=== PATIENT | female | born 1945 ===

== ENCOUNTER 2024-01-02 08:22 | Inpatient (IN) ==
[2024-01-02] MEDS ORDERED: Patient's ALLERGY Info needs ENTERED SCH (09:00)
[2024-01-02] MEDS: diphenhydrAMINE 50 MG/ML VIAL ONE (09:23)
[2024-01-02] MEDS: niCARdipine HCL INJ 2.5 MG/ML 10 ML AMP ONE (09:23)
[2024-01-02] MEDS: NITROGLYCERIN/D5W 100MCG/ML 20ML SYR ONE (09:23)
[2024-01-02] MEDS: MIDAZOLAM HCL 1 MG/ML 2ML VIAL ONE (09:24)
[2024-01-02] MEDS: HEPARIN (PORCINE) 1000 UNIT/ML 10 ML (CATH LAB USE ONLY) ONE (09:24)
[2024-01-02] MEDS: OPTIRAY 350 ONE (09:28)
[2024-01-02] MEDS: fentaNYL citrate PF 100 MCG/2 ML VIAL ONE (09:28)
--- NOTE | 2024-01-02 09:37 | Pre Anesthesia Assessment ---
Date of Service January 02, 2024 Pre Sedation Assessment Cardiovascular + regular rate Respiratory + respiratory effort normal Pre-Sedation Airway Assessment Smoking Status: Current every day smoker Hx Sleep Apnea: No Hx Difficult Intubation: No Short, Thick Neck: No Thyromental Distance: < 3.5 Finger Breadths Oral Cavity: + Dental Abnormalities Mallampati Class: III Procedure Planning Contraindications for Sedation: none Current Medications Reviewed: Yes Notes The planned sedation has been discussed with the patient. Informed Consent was obtained. I have identified the patient, determined the appropriateness of sedation and have assessed the patient immediately prior to the procedure. All medicine(s) and interventions are by my order.
--- NOTE | 2024-01-02 09:40 | Post Anesthesia Assessment ---
Date of Service January 02, 2024 Post Sedation Assessment Recovery Score Activity: Moves 4 extremities Respiration: Deep Breath/Cough Circulation: +/-20% PreAnes Value Consciousness: Fully Awake Oxygen Saturation: O2 needed for >90% Discharge Sedation Level of Care: Fast Track Phase II Post Sedation Plan On clinical assessment, the patient appears to have tolerated the sedation without complications. Patient is recovering as anticipated. Patient will continue to be monitored by nursing and may be discharged when sedation discharge criteria are met per below protocol. Upon Completions of procedure up to 15 minutes continue every 5 minute vital signs and the P.A.R. score; then discharge to a Phase I or Fast Track to Phase II per the following guidelines: * Discharge Patient to appropriate Phase II area if PAR is 8 or greater or return to pre- procedure baseline. The post - procedure orders will be as directed. * If PAR score is less than 8 or not return to pre-procedure baseline then patient will follow Phase I monitoring till PAR is reached for Phase II. The Phase I may be done in procedure room or may call to secure a Phase I area. * If naloxone or flumazenil are used for reversal, hold in Phase I for continued monitoring from when last reversal dose was given for a minimum of 60 minutes or longer pending the nurse and/or physician discretion of patient condition before discharge to Phase II. Please call the Sedation Physician to re-evaluate and complete post-note for discharge to Phase II area. Do NOT discharge from procedure sedation or Phase 1 until post- sedation evaluation note is complete by procedure /sedation MD Sedation Discharge Instructions to be given to the patient at discharge to home.
--- NOTE | 2024-01-02 10:14 | Cardiology Consultation ---
Date of Consultation January 02, 2024 Assessment & Plan (1) Acute ST elevation myocardial infarction (STEMI) of inferior wall: Patient here following thrombolysis for inferior STEMI 3 hours ago. She has had stuttering chest pain with transient hemodynamic instability suggestive of incomplete reperfusion post lytics. Recommend proceeding with coronary angiography for possible salvage PCI. Further recommendations pending findings of procedure. History of Present Illness Attending Physician: Sonu Thomas MD History of Present Illness 78-year-old woman here with inferior DE transferred here from [facility] post thrombolysis. No known prior cardiac history. Negative stress and normal LV function on echo in 2021. Has a history of vascular disease with occluded left ICA, 50% right ICA. Had ruptured AAA in 2021 treated with EVAR in [place]. She is an ongoing smoker. Patient unable to provide significant history. Per report from [facility] ED physician patient developed chest pain around midnight, 4 hours prior to arrival in ED. ECG personally reviewed showed sinus rhythm with inferior ST elevation and old right bundle branch block. Air and ground transport unavailable. After discussion decided on proceeding with thrombolysis with tenecteplase which received at approximately 5:30 AM. Was hypertensive to 200s and received IV labetalol. Per report had improvement in ST elevations post TNK but continued to have stuttering chest pain. Also became medically unstable with hypotension, junctional bradycardia to the 30s requiring initiation of dopamine, atropine. On arrival to [facility] patient denied ongoing chest. Reportedly had chest pain off and on and route per EMS. Repeat ECG showed minimal inferior ST elevation with inferior Q waves. Dopamine off with stable BP. Home Medications Medication Instructions Recorded Confirmed Type aspirin 81 mg capsule 81 mg PO DAILY 01/02/24 01/02/24 History donepezil 10 mg tablet 10 mg PO DAILY 01/02/24 01/02/24 History memantine 10 mg tablet 10 mg PO DAILY 01/02/24 01/02/24 History metoprolol succinate 100 mg 100 mg PO DAILY 01/02/24 01/02/24 History tablet,extended release 24 hr pantoprazole 40 mg tablet,delayed 40 mg PO DAILY 01/02/24 01/02/24 History release (Protonix) trospium 60 mg capsule,extended 60 mg PO DAILY 01/02/24 01/02/24 History release 24 hr Patient History Medical History Chronic pain of both feet Osteoarthritis Rheumatoid arthritis AAA (abdominal aortic aneurysm, ruptured) History of mumps History of measles GERD (gastroesophageal reflux disease) Fibromyalgia Urinary incontinence Coronary artery disease History of transient ischemic attack Dementia Hyperlipidemia Surgical History History of AAA (abdominal aortic aneurysm) repair Endovascular repair of ruptured AAA on 04/16/2022 @ [facility]. Social History Smoking Status: Current every day smoker Tobacco Type: Cigarettes Second Hand Exposure: No; Do You Dip or Chew Tobacco: No; Tobacco Cessation Education Requested by Patient: No Hx Alcohol Use: Yes Alcohol type: wine Hx Substance Use: No Preferred Language: Kyrgyz Communication Ability: Effective Fund Manager Required: No Beliefs That Will Affect Care: None Current Living Situation: Spouse Other Information That Helps Us Care for You: No Feels Safe at Home: Yes Safety Concerns: Feels Safe At This Time Review of Systems Review of Systems: All systems reviewed & are unremarkable except as noted in HPI & below Physical Exam Physical Exam: General: Uncomfortable HEENT: Sclerae anicteric Lungs: Clear anteriorly Cardiac: Regular rate and rhythm, no murmurs. Vascular: 2+ radial Abdomen: Soft, nontender Extremities: Well perfused, no peripheral edema Neuro: Nonfocal Psych: Alert orient x3, normal affect and mood PG Care Time/CCT Total # of Minutes Spent Total Time Spent with Patient: Total time spent is greater than 50% in coordination of care (as documented) at patient's floor/unit and/or counseling patient: Coding Level of Care Code 31051 INT INP/OBS CARE 3/75MIN Diagnoses Acute ST elevation myocardial infarction (STEMI) of inferior wall I21.19
--- NOTE | 2024-01-02 10:15 | Cardiac Catheterization ---
[facility] Data: Bar Host/Hostess Cardiac Status Clinical evaluation leading to the procedure CAD Presenation: STEMI Anginal Classification: CCS IV Diagnostic Physicians Name: Sonu Thomas MD Closure Device Recommendations: PCI without planned CABG Cardiac Cath Procedure Full Procedure Date January 02, 2024 Pre-Procedure Diagnosis Pre-Procedure Diagnosis: STEMI AUC Score AUC Score: 9 Post-Procedure Diagnosis Post-Procedure Diagnosis: Severe CAD, Successful PCI and Normal Intracardiac Pressures Procedure(s) Performed Procedure(s) Performed: Coronary Angiography, Left Heart Cath, Drug Eluting Stent and Ultrasound Guided Vascular Access Developer Programmer Sonu Thomas MD Home Health Care Case Manager(s) Marissa Estimated Blood Loss Estimated Blood Loss: 20 Medication(s) Medication(s): Fentanyl, Heparin, Lidocaine 1%, Nicardipine, Nitroglycerin and Versed Medication(s): Previously received ticagrelor, TNK Summary of Findings Indication: STEMI/Heart Alert Inferior STEMI with presentation to outside non- PCI capable hospital. Delayed transport options and received TNK 3 hours prior to arrival. Ongoing stuttering chest pain and transient hemodynamic instability requiring pressors. Access: 6 Fr right radial artery under ultrasound guidance Catheters: [place], JR4 guide Findings: LM -normal caliber, calcified, 30-40% distal stenosis LAD -medium caliber, calcified, 60-70% earlymid stenosis involving takeoff of m edium D2. Remainder of mid/distal vessel without significant disease and wraps around apex. Medium D2 without significant disease. Circumflex -medium caliber, angulated takeoff, 40% ostial stenosis, 80-90% mid segment stenosis prior to takeoff of large OM 3. OM 3 with 40% proximal disease. RCA -dominant, medium caliber, 95+% mid RCA stenosis with OLIMPIA-3 distal flow. PDA, RPL without significant disease. LVEDP -11 -- PCI -- Antithrombotic therapy: Heparin, OSH ticagrelor Procedure: RCA cannulated with JR4 guide [place] blue wire passed across lesion into distal vessel With the aid of telescope support catheter mid lesion predilated with 2.5 compliant balloon Dilated lesion stented with 3.0 x 22 mm [place] drug-eluting stent Stent post-dilated with 3.5 noncompliant balloon IC vasodilators administered for spasm Post procedure OLIMPIA 3 flow, stent well expanded with minimal residual stenosis and no apparent cardiac complications. Arterial Closure: TR band Summary: 1. Acute 95% mid RCA stenosis post thrombolytics 2. Severe non-culprit coronary artery disease -80-90% mid circumflex 60-70% mid LAD at bifurcation with D2 30-40% distal left main 3. Normal intracardiac filling pressure 4. Successful PCI of mid RCA with single drug-eluting stent (3.0 x 22 mm [place]; postdilated with 3.5 NC) Recommendations: Admit to ICU for continued monitoring Loaded with ticagrelor 180 mg Continue dual-antiplatelet therapy for at least 1 year. Trend troponins until peak, Check Echo Uptitrate beta-kimberly/ANNE MARIE as BP allows High-dose statin Consult cardiac Rehab Likely staged PCI of circumflex at some point, potentially as an outpatient. Hemodynamics Rest Ao:: 148/68/102 Final Ao: 164/84/112 LV: 154/11 Recommendations Recommendations: PCI without planned CABG Specimens Specimens: None Radiation Exposure (mGy) 679 Contrast (mls) 90 Anesthesia Moderate 7170-1376 Procedural Complication(s) None Disposition ICU I attest to the content of the Intraoperative Record and any orders documented therein. Any exceptions are noted below. [facility] Card Cath Procedure Codes Cardiac Catheterization Procedure 1: Cardiovascular Cath Procedures: 27543 Coronaries and LHC (+/-LV) Therapeutic Services & Ancillary Procedure 1: Cardiovascular Tx and Anc Procedures: 82042 Ultrasonic Guidance Vascular Access Moderate Sedation Procedure 1: Sedation/Anesthesia: 20015 Mod Sedation by the same physician;Init15 Min Child Age 5 & Up Procedure 2: Sedation/Anesthesia: 60048 Mod Sedation by the same physician; Ea [id number] Minutes Stenting Procedure 1: Cardiovascular Stent Procedures: 92621 Perc transluminal revascularization of acute sub/total occl, aMI PG Care Time/CCT Total # of Minutes Spent Total Time Spent with Patient: Total time spent is greater than 50% in coordination of care (as documented) at patient's floor/unit and/or counseling patient:
--- NOTE | 2024-01-02 10:37 | History & Physical Report ---
Date of Service January 02, 2024 Assessment & Plan (1) Acute ST elevation myocardial infarction (STEMI) of inferior wall: (2) S/P cardiac catheterization: (3) Coronary artery disease: Plan: Danita Bull is a 78y/o F with PMHx of CAD, urinary incontinence, TIA [2019], dementia, hyperlipidemia, b/l carotid artery stenosis, GERD, ruptured AAA s/p endovascular repair [04/16/2022], osteoarthritis/RA and fibromyalgia who presented to [facility] following transfer from [facility] to undergo cardiac catheterization for tx of an acute inferior STEMI. According to documentation from [facility], patient presented to their ED via EMS with c/c of chest pain starting sometime in the speech therapist early intervention hours today. EKG performed by EMS revealed an inferior STEMI, and aspiring was provided en route to the hospital. She was reported to be at baseline yesterday. The chest pain has lingered since it began in the speech therapist early intervention hours, and her pain level was recorded being ~8/10 upon arrival to the [facility] ED. Initial trop in [facility] ED was 47 @ 04:25, repeat trop @ 05:38 increased to 50. TNK and Brilinta initiated in [facility] ED. Labetalol also given in [facility] ED, as her SBP was in the 200s. SBP improved to the 150s following administration. Low-dose fentanyl was also given for pain. Patient did become bradycardic in the 30s, was ultimately given 1mg of atropine and started on a dopamine infusion. Patient ultimately transferred here to [facility] via [facility] ambulance. Patient underwent successful cardiac catheterization of mid RCA w/ single drug- eluding stent placement, performed by Dr. Thomas. He mentioned further evaluation/management of the mid circumflex artery, as 80% occlusion was noted during the cardiac catheterization procedure. Continue to f/u on Dr. Thomas' recommendation/plan for addressing the mid circumflex artery occlusion. Of note, 30-40% distal left main artery and 60% mid LAD artery occlusions noted during procedure as well. She is now off the dopamine drip s/p cardiac catheterization. HR currently holding steady in the 80s. -Start high-dose statin therapy -Continuous cardiac monitoring -Repeat troponin, trend results -Admitted to ICU for further monitoring -Dr. Thomas for further cardiac management (4) Hyperlipidemia: Plan: -Patient was not taking any cholesterol medications at home. -Will be started on high-dose statin therapy per cardiac protocol. (5) History of dementia: Plan: -Unknown severity of dementia status, pt is actively disoriented to location. -Monitor for any signs of delirium during admission (6) GERD (gastroesophageal reflux disease): Plan: -Continue pantoprazole Spoke with her , Jeremy, over the phone. He would like to be updated daily via mobile cellphone communication on her progress. He cannot drive currently d/t low BP. Jeremy's Cell Code Status: Full Code PCP: Sreedhar Jackson MD Dispo: Admitted in the ICU Patient seen in collaboration with Dr. Ortiz. Please see addendum. I spent a total of 75 minutes coordinating, documenting, and providing care for this patient excluding time spent in the performance of separately billed services. This included personally reviewing all current laboratories and imaging studies, medical reconciliation, outpatient chart review and discussion with specialists. History of Present Illness Chief Complaint: Acute Inferior STEMI Primary Care Provider: Sreedhar Jackson MD Danita Bull is a 78y/o F with PMHx of CAD, urinary incontinence, TIA [2019], dementia, hyperlipidemia, b/l carotid artery stenosis, GERD, ruptured AAA s/p endovascular repair [04/16/2022], osteoarthritis/RA and fibromyalgia who presented to [facility] following transfer from [facility] to undergo cardiac catheterization for tx of an acute inferior STEMI. History mainly obtained from associated ED/PCP/specialist records. Patient unable to provide significant history. According to documentation from [facility], patient presented to their ED via EMS with c/c of chest pain starting sometime in the speech therapist early intervention hours today. EKG performed by EMS revealed an inferior STEMI, and aspiring was provided en route to the hospital. She was reported to be at baseline yesterday. The chest pain has lingered since it began in the speech therapist early intervention hours, and her pain level was recorded being ~8/10 upon arrival to the [facility] ED. Initial trop in [facility] ED was 47 @ 04:25, repeat trop @ 05:38 increased to 50. TNK and Brilinta initiated in [facility] ED. Labetalol also given in [facility] ED, as her SBP was in the 200s. SBP improved to the 150s following administration. Low-dose fentanyl was also given for pain. Patient did become bradycardic in the 30s, was ultimately given 1mg of atropine and started on a dopamine infusion. Patient seen at bedside in ICU s/p cardiac catheterization performed by Dr. Thomas. Patient states she is "exhausted." Experiencing no chest pain or SOB at this time. Not really oriented to her surroundings, did not correctly identify where she currently is. Patient states she is in "an outpatient surgery center somewhere in [place]." Patient was discussed with bedside nurse, Jethro, who was going to contact her to clarify her home medications and baseline mental status. Allergies Allergy/AdvReac Type Severity Reaction Status Date / Time acetaminophen Allergy Unknown Unverified 01/02/24 13:09 adhesive tape Allergy Unknown Unverified 01/02/24 13:09 codeine Allergy Unknown Unverified 01/02/24 13:14 Penicillins Allergy Unknown Unverified 01/02/24 13:14 Sulfa (Sulfonamide Allergy Unknown Unverified 01/02/24 13:14 Antibiotics) Sulfonylureas Allergy Unknown Unverified 01/02/24 13:14 Antihistamines - Alkylamine AdvReac Vomiting Unverified 01/02/24 13:15 Antihistamines - Ethanolamine AdvReac Vomiting Unverified 01/02/24 13:17 Home Medications Medication Instructions Recorded Confirmed Type aspirin 81 mg capsule 81 mg PO DAILY 01/02/24 01/02/24 History donepezil 10 mg tablet 10 mg PO DAILY 01/02/24 01/02/24 History memantine 10 mg tablet 10 mg PO DAILY 01/02/24 01/02/24 History metoprolol succinate 100 mg 100 mg PO DAILY 01/02/24 01/02/24 History tablet,extended release 24 hr pantoprazole 40 mg tablet,delayed 40 mg PO DAILY 01/02/24 01/02/24 History release (Protonix) trospium 60 mg capsule,extended 60 mg PO QPM 01/02/24 01/02/24 History release 24 hr Past Med/Surg History Medical History Chronic pain of both feet Osteoarthritis Rheumatoid arthritis AAA (abdominal aortic aneurysm, ruptured) History of mumps History of measles GERD (gastroesophageal reflux disease) Fibromyalgia Urinary incontinence Coronary artery disease History of transient ischemic attack Dementia Hyperlipidemia Surgical History History of AAA (abdominal aortic aneurysm) repair Endovascular repair of ruptured AAA on 04/16/2022 @ [facility]. Social History (Updated 01/02/24 @ 13:46 by Rebekah Calero PA-C) Smoking Status: Current every day smoker Tobacco Type: Cigarettes Second Hand Exposure: No; Do You Dip or Chew Tobacco: No; Hx Alcohol Use: Yes Alcohol type: wine Alcohol Intake Frequency Comment: 1-2 glasses of wine/day Hx Substance Use: No Preferred Language: Botswanan Communication Ability: Effective Air Sampler Required: No Beliefs That Will Affect Care: None Current Living Situation: Spouse Feels Safe at Home: Yes Review of Systems Review of Systems: At least ten systems reviewed and negative, except as noted in the HPI. Physical Exam Physical Exam: General Appearance: Appears very tired, but comfortable. Had to wake her up multiple times during our conversation, as she kept falling asleep. Head: Normocephalic, atraumatic. Eyes: Normal inspection, PERRL, conjunctivae normal, anicteric sclerae. ENT: External ear and nose normal, oropharynx normal. Neck: Normal visual inspection, trachea midline, no thyromegaly. Respiratory: Normal respiratory effort, lungs clear to auscultation on the anterior aspect, no wheeze, rales, rhonchi. No accessory muscle use. Cardiovascular: Regular rate, rhythm, no murmur, normal peripheral pulses, no peripheral edema. Vessels: No JVD. Chest: Normal inspection of chest. Abdomen/GI: Normal bowel sounds, soft, nontender, no hepatosplenomegaly Extremities/Musculoskeletal: No cyanosis or clubbing. Neurologic: PERRL, EOMI, accommodation nl, no face palsy, no dysarthria. Psychiatric: Not oriented to location. Was able to make eye contact on/off. Flatter affect, however notably sleepy. Skin: [address] s/p cardiac catheterization. No evidence of bleeding at either site. Results & Data Results & Data Vital Signs (Past 12 Hours) Vital Signs Temp Pulse Resp BP Pulse Ox O2 Del Method O2 Flow Rate 01/02/24 09:50 80 16 154/80 H 92 Room Air 05/10/24 09:45 36.7 C 72 18 166/97 H 96 Nasal Cannula 2 Intake and Output 01/01/24 01/02/24 01/02/24 22:59 06:59 14:59 Other: Weight 55 kg Weight Measurement Method Built in [facility] Patient Weight 01/03/24 06:59 Weight 55 kg Medications Administered Discontinued Medications Diphenhydramine HCl (Diphenhydramine 50 Mg/Ml Vial) Confirm Administered Dose 50 mg .ROUTE .STK-MED ONE Stop: 01/02/24 09:05 Last Admin: 01/02/24 09:23 Dose: 25 mg Documented By: CRUSHER AND BLENDER OPERATOR Fentanyl Citrate (Fentanyl Citrate Pf 100 Mcg/2 Ml Vial) Confirm Administered Dose 100 mcg .ROUTE .STK-MED ONE Stop: 01/02/24 06:58 Last Increment: 01/02/24 09:28 Dose: 50 mcg Documented By: CRUSHER AND BLENDER OPERATOR Heparin Sodium (Porcine) (Heparin (Porcine) 1000 Unit/Ml 10 Ml (Exhibits Coordinator Use Only)) Confirm Administered Dose 10,000 units .ROUTE .STK-MED ONE Stop: 01/02/24 06:58 Last Admin: 01/02/24 09:24 Dose: 6,000 units Documented By: CRUSHER AND BLENDER OPERATOR Heparin Sodium/Sodium Chloride (Heparin In Nss Infusion 1000 Unit/500 Ml (2 U/Ml) Bag) Confirm Administered Dose 3,000 units IV .STK-MED ONE Stop: 01/02/24 06:59 Last Admin: 01/02/24 09:23 Dose: 3,000 units Documented By: CRUSHER AND BLENDER OPERATOR Ioversol (Optiray 350) Confirm Administered Dose 1 ml .ROUTE .STK-MED ONE Stop: 01/02/24 06:59 Last Admin: 01/02/24 09:28 Dose: 90 ml Documented By: CRUSHER AND BLENDER OPERATOR Midazolam HCl (Midazolam Hcl 1 Mg/Ml 2ml Vial) Confirm Administered Dose 2 mg .ROUTE .STK-MED ONE Stop: 01/02/24 06:58 Last Admin: 01/02/24 09:24 Dose: 2 mg Documented By: CRUSHER AND BLENDER OPERATOR Nicardipine HCl (Nicardipine Hcl Inj 2.5 Mg/Ml 10 Ml Amp) Confirm Administered Dose 25 mg .ROUTE .STK-MED ONE Stop: 01/02/24 06:58 Last Admin: 01/02/24 09:23 Dose: 25 mg Documented By: CRUSHER AND BLENDER OPERATOR Nitroglycerin/Dextrose (Nitroglycerin/D5w 100mcg/Ml 20ml Syr) Confirm Ad ministered Dose 2,000 mcg .ROUTE .STK-MED ONE Stop: 01/02/24 06:59 Last Admin: 01/02/24 09:23 Dose: 2,000 mcg Documented By: CRUSHER AND BLENDER OPERATOR Code Status & VTE Plan Code Status FULL CODE VTE Prophylaxis Plan VTE Prophylaxis will be ordered: Yes Supervising Physician Co-Signing Physician Notes I have seen and discussed the case with the collaborating advanced practitioner. I agree with the above H&P. I have reviewed and confirmed the patients medical history, the findings on physical examination, and the patients diagnosis and treatment plan with Galilea NOBLE and agree with the information documented. In short, Ms. Bull is a 78 year old woman with PMHx of CAD, urinary incontinence, TIA [2019], dementia, hyperlipidemia, b/l carotid artery stenosis, GERD, ruptured AAA s/p endovascular repair [04/16/2022], osteoarthritis/RA and fibromyalgia who presented to [facility] following transfer from [facility] to undergo cardiac catheterization for tx of an acute inferior STEMI. Patient is now s/p 1 BAILEY mRCA. Patient evaluated after procedure, she is alter and oriented to self, still seemingly sedated. Denies active pain. Unable to describe circumstances of admission at this time. Patient without any acute concerns, denying chest pain, SOB or other issues. LHC revealed: 99% mid RCA 30 to 40% distal left main 80% mid circumflex 60% mid LAD GENERAL APPEARANCE: AxOx1, tired appearing frial woman, HEENT: NC, AT. MMM. EOMI, clear conjunctiva, oropharynx clear. NECK: Supple without lymphadenopathy. No stiffness or restricted ROM. HEART: Normal rate and regular rhythm, normal S1/S1, no m/r/g LUNGS: CTAB, moving air well. No crackles or wheezes are heard. ABDOMEN: Soft, nontender, nondistended with good bowel sounds heard. EXTREMITIES: Without cyanosis, clubbing or edema. NEUROLOGICAL: Grossly nonfocal. Alert and oriented, moving all 4 extremities. CN not formally tested but appear grossly intact. Observed to ambulate with normal gait. Skin: right access site with [address], some ecchymosis from access, scattered purpuric lesions on right chest, no obvious wounds or skin tears #Acute STEMI s/p BAILEY mRCA #Obstructive CAD -following thrombolysis for inferior STEMI 3 hours ago at [facility] -Admit to ICU for continued monitoring Loaded with ticagrelor 180 mg Continue ticagrelor and asa Trend troponins until peak Check Echo Started on lisinopril 5mg Metoprolol q8h Atorvastatin 40g daily #Dementia -Delirium precautions -Continue memantine and donpezil #urge incontinence Continue home medications #Ruptured AAA s/p EVAR 2021 -[facility] Dr Steven Rest of plan as above I spent a total of 35 minutes coordinating, documenting, and providing care for this patient excluding time spent in the performance of separately billed services. All of the aforementioned completed outside of collaborating with the assigned advanced practitioner for a full treatment plan. I have reviewed the advanced practitioner's documentation, and I agree with, and take responsibility for the plan of care (3) Coronary artery disease Associated angina: unspecified whether angina present Coronary Disease- Associated Artery/Lesion type: unspecified vessel or lesion type [place] vs. transplanted heart: tribe heart Qualified Code(s): I25.10 - Atherosclerotic heart disease of tribe coronary artery without angina pectoris (4) Hyperlipidemia Hyperlipidemia type: unspecified Qualified Code(s): E78.5 - Hyperlipidemia, unspecified (6) GERD (gastroesophageal reflux disease) Esophagitis presence: without esophagitis Qualified Code(s): K21.9 - Gastro- esophageal reflux disease without esophagitis
--- NOTE | 2024-01-02 13:01 | Critical Care Consultation ---
Date of Consultation January 02, 2024 Assessment & Plan (1) Acute ST elevation myocardial infarction (STEMI) of inferior wall: (2) Bradycardia: (3) History of dementia: Plan Impression: 78-year-old female with multifocal coronary disease presenting with acute ST elevation inferior myocardial infarction status post outside hospital TNK administration as well as salvage cardiac catheterization with stent placement to the right coronary artery. She has multifocal disease and may require additional procedures in the future. Recommendations: 1. Acute coronary syndrome: Per cardiology. Will judiciously titrate beta- kimberly, ANNE MARIE inhibitor, and statin. Will need to get outside labs performed at [facility] scanned into our system as I would not recommend additional venipuncture for 24 hours post TNK administration as the patient is already having bleeding issues 2. Bradycardia: Likely secondary to labetalol as well as the inferior SD. Resolved currently. Follow clinically. 3. Hypotension: Resolved. She is now actually hypertensive. She has been started on metoprolol and lisinopril and these can be uptitrated as tolerated. 4. Will await repeat laboratory studies which can be performed tomorrow. 5. Dementia: Continue Aricept. Will continue to observe in the ICU overnight tonight. If she is hemodynamically stable, she can likely be downgraded out of the ICU tomorrow. Thanks for the opportunity participating the care of this patient. Feel free to contact us with questions or concerns History of Present Illness Attending Physician: Arlet Soto MD History of Present Illness Patient is a 78-year-old female with a history of dementia who presented to [facility] early this morning with an acute coronary syndrome. The patient has underlying dementia and is not a reliable historian so history is obtained from review of the electronic medical record as well as discussion with cardiology. Reportedly the patient developed chest pain around midnight. She was seen in [place] emergency room. This revealed ST elevation in inferior leads with a prior right bundle branch. Due to weather, transport including air and ground transport were unobtainable therefore the patient received systemic thrombolytics. She was then hypertensive requiring IV labetalol but then developed hypotension and a junctional bradycardia with stuttering chest pain. She was initiated on dopamine and therefore was arranged for urgent transfer to [facility]. On arrival here she was chest pain-free. Dopamine has been weaned off. She was taken to the [facility] where she was found to have multifocal disease with a culprit lesion in the right coronary artery showing about a 95% stenosis with OLIMPIA-3 distal flow. There is also an 80 to 90% segmental stenosis in the circumflex as well as a 30 to 40% distal stenosis in the left main and a 60 to 70% stenosis in the LAD. LVEDP was normal. She underwent drug-eluting stent to the right coronary lesion and was brought to the ICU. She is hemodynamically stable. Patient did undergo vena puncture to the right AC on arrival and now has a significant hematoma as this was performed after she had received TNK. She also has a small hematoma at the site of her radial artery catheterization which has resulted in application of the second TR band. Allergies Allergy/AdvReac Type Severity Reaction Status Date / Time Acetaminophen Allergy Unknown Unknown Uncoded 01/02/24 13:05 Adhesive Tape Allergy Unknown Unknown Uncoded 01/02/24 13:05 Antihistamines, Allergy Unknown Nausea/Vomi Uncoded 01/02/24 13:05 Chlorpheniramine-type ting Antihistamines, Allergy Unknown Nausea/Vomi Uncoded 01/02/24 13:05 diphenhydramine-type ting Codeine Allergy Unknown Unknown Uncoded 01/02/24 13:05 Penicillins Allergy Unknown Unknown Uncoded 01/02/24 13:05 Sulfa Antibiotics Allergy Unknown Unknown Uncoded 01/02/24 13:05 Sulfonylureas Allergy Unknown Unknown Uncoded 01/02/24 13:05 Home Medications Medication Instructions Recorded Confirmed Type aspirin 81 mg capsule 81 mg PO DAILY 01/02/24 01/02/24 History donepezil 10 mg tablet 10 mg PO DAILY 01/02/24 01/02/24 History memantine 10 mg tablet 10 mg PO DAILY 01/02/24 01/02/24 History metoprolol succinate 100 mg 100 mg PO DAILY 01/02/24 01/02/24 History tablet,extended release 24 hr pantoprazole 40 mg tablet,delayed 40 mg PO DAILY 01/02/24 01/02/24 History release (Protonix) trospium 60 mg capsule,extended 60 mg PO QPM 01/02/24 01/02/24 History release 24 hr Patient History Medical History Chronic pain of both feet Osteoarthritis Rheumatoid arthritis AAA (abdominal aortic aneurysm, ruptured) History of mumps History of measles GERD (gastroesophageal reflux disease) Fibromyalgia Urinary incontinence Coronary artery disease History of transient ischemic attack Dementia Hyperlipidemia Surgical History History of AAA (abdominal aortic aneurysm) repair Endovascular repair of ruptured AAA on 04/16/2022 @ [facility]. Social History Smoking Status: Current every day smoker Tobacco Type: Cigarettes Second Hand Exposure: No; Do You Dip or Chew Tobacco: No; Tobacco Cessation Education Requested by Patient: No Hx Alcohol Use: Yes Alcohol type: wine Hx Substance Use: No Preferred Language: Jamaican Communication Ability: Effective Customer Service Technician Required: No Beliefs That Will Affect Care: None Current Living Situation: Spouse Other Information That Helps Us Care for You: No Feels Safe at Home: Yes Safety Concerns: Feels Safe At This Time Review of Systems Review of Systems: Please refer to admission H&P. No additions or deletions Physical Exam Physical Exam: General: Uncomfortable HEENT: Sclerae anicteric Lungs: Clear anteriorly Cardiac: Regular rate and rhythm, no murmurs. Vascular: 2+ radial Abdomen: Soft, nontender Extremities: Well perfused, no peripheral edema Neuro: Nonfocal Psych: Alert orient x3, normal affect and mood Results & Data Results & Data Vital Signs (Past 12 Hours) Vital Signs Temp Pulse Pulse Resp BP BP Pulse Ox 01/02/24 12:00 163/95 H 01/02/24 12:00 70 26 H 95 01/02/24 11:45 162/93 H 01/02/24 11:45 73 19 96 01/02/24 11:30 74 15 93 01/02/24 11:15 72 16 95 01/02/24 11:00 166/88 H 01/02/24 11:00 74 21 99 01/02/24 10:45 72 17 96 01/02/24 10:34 73 16 91 01/02/24 10:34 166/97 H 01/02/24 10:30 72 22 91 01/02/24 10:29 76 20 89 L 01/02/24 09:50 80 16 154/80 H 92 05/10/24 09:45 36.7 C 72 18 166/97 H 96 O2 Del Method O2 Flow Rate 01/02/24 12:00 01/02/24 12:00 01/02/24 11:45 01/02/24 11:45 01/02/24 11:30 01/02/24 11:15 01/02/24 11:00 01/02/24 11:00 01/02/24 10:45 01/02/24 10:34 01/02/24 10:34 01/02/24 10:30 01/02/24 10:29 01/02/24 09:50 Room Air 01/02/24 09:45 Nasal Cannula 2 Critical Care Results & Data Vital Signs (Past 12 Hours) Vital Signs Temp Pulse Pulse Resp BP BP Pulse Ox 01/02/24 12:00 163/95 H 01/02/24 12:00 70 26 H 95 01/02/24 11:45 162/93 H 01/02/24 11:45 73 19 96 01/02/24 11:30 74 15 93 01/02/24 11:15 72 16 95 01/02/24 11:00 166/88 H 01/02/24 11:00 74 21 99 01/02/24 10:45 72 17 96 01/02/24 10:34 73 16 91 01/02/24 10:34 166/97 H 01/02/24 10:30 72 22 91 01/02/24 10:29 76 20 89 L 01/02/24 09:50 80 16 154/80 H 92 01/02/24 09:45 36.7 C 72 18 166/97 H 96 O2 Del Method O2 Flow Rate 01/02/24 12:00 01/02/24 12:00 01/02/24 11:45 01/02/24 11:45 01/02/24 11:30 01/02/24 11:15 01/02/24 11:00 01/02/24 11:00 01/02/24 10:45 01/02/24 10:34 01/02/24 10:34 01/02/24 10:30 01/02/24 10:29 01/02/24 09:50 Room Air 01/02/24 09:45 Nasal Cannula 2 Lab & Micro Results (Past 24 Hours) No Data to Display No Data to Display No Data to Display I & O Totals 24 Hours 01/01/24 01/02/24 01/03/24 06:59 06:59 06:59 Intake Total 150 / 150 Output Total 0 / 0 Balance 150 / 150 Cumulative 01/02/24 thru 01/02/24 09:52 Intake Total 150 Output Total 0 Balance 150 RT Ventilator Mngmt (Last Documented) Ventilator Ordered Settings Respiratory Rate 26 01/02/24 12:00 Ventilator - PT Measurements Respiratory Rate 26 Coding Level of Care Code 46646 IN/OBS CONSULT LVL 4,60M Diagnoses Acute ST elevation myocardial infarction (STEMI) of inferior wall I21.19 Bradycardia R00.1 History of dementia Z86.59
[2024-01-02] MEDS: ICU Protocol for HYPERglycemia SCH (14:36)
--- OUTSIDE RECORDS SUMMARY | 2024-01-02 14:37 | External Medical Summary ---
Author Name Unknown Address Unknown Organization K1F:[facility] - [address] [address] Laboratory Report Ordering Provider Test Date Status MARLEN COATS 01/02/2024 04:25:21 Final Anticoagulation may affect t esting. Refer to [facility] Test Catalog for a list of effects. Observation Date Value Abnormality Reference (Units ) Status aPTT panel - Platelet poor plasma 01/02/2024 04:25:21 32 21-38 (seconds) Final Performing Location [facility] - [address] [id number]
--- OUTSIDE RECORDS SUMMARY | 2024-01-02 14:37 | External Medical Summary ---
Author Name Unknown Address Unknown Organization K1F:[facility] - [address] [id number] Laboratory Report Ordering Provider Test Date Status MARLEN COATS 01/02/2024 04:25:21 Final Observation Date Value Abnormality Reference (Units ) Status Troponin T 01/02/2024 04:25:21 47 Above high normal < =14 (ng/L) Final Performing Location [facility] - [address] [id number]
--- OUTSIDE RECORDS SUMMARY | 2024-01-02 14:37 | External Medical Summary ---
Author Name Unknown Address Unknown Organization K1F:[facility] - [address] [place] [address] Laboratory Report Ordering Provider Test Date Status MARLEN COATS 01/02/2024 04:25:21 Final Observation Date Value Abnormality Reference (Units ) Status BUN 01/02/2024 04:25:21 13 6-20 (mg/dL) Final Creatinine 01/02/2024 04:25:21 1.0 0.5-1.0 (mg/dL) Final Glomerular filtration rate/1.73 sq M.predicted [Volume Rate/Area] in Serum, Plasma or Blood by Creatinine-based formula (CKD-EPI) 01/02/2024 04:25:21 61 >=60 (mL/min) Final eGFR is calculated based on the CKD-EPI 2020 equation Sodium 01/02/2024 04:25:21 140 135-146 (m mol/L) Final Potassium 01/02/2024 04:25:21 3.4 Below low normal 3.5 -5.1 (mmol/L) Final Cl 01/02/2024 04:25:21 102 98-107 (mm ol/L) Final CO2 01/02/2024 04:25:21 24 22-32 (mmo l/L) Final Anion gap 01/02/2024 04:25:21 14 7-15 (mmol /L) Final Glucose 01/02/2024 04:25:21 161 Above high normal 70 -120 (mg/dL) Final Albumin 01/02/2024 04:25:21 4.6 3.8-5.0 (g /dL) Final AST (Aspartate aminotransferase) 01/02/2024 04:25:21 20 10-35 (U/L) Fin al Alk Phos 01/02/2024 04:25:21 109 35-130 (U/ L) Final Bilirubin, Total 01/02/2024 04:25:21 0.2 <=1 .2 (mg/dL) Final Calcium 01/02/2024 04:25:21 9.9 8.4-10.2 ( mg/dL) Final Protein 01/02/2024 04:25:21 7.7 6.0-8.3 (g /dL) Final ALT (Alanine aminotransferase) 01/02/2024 04:25:21 14 10-35 (U/L) Surendra mendoza Performing Location LABORATORY [facility] - [address] [place], [place] [address] [address]
--- OUTSIDE RECORDS SUMMARY | 2024-01-02 14:37 | External Medical Summary ---
Author Name Unknown Address Unknown Organization K1F:LABORATORY [facility] - [address] [place] [address] Laboratory Report Ordering Provider Test Date Status MARLEN COATS 01/02/2024 04:26:11 Final SCREENING Observation Date Value Abnormality Reference (Units ) Status SARS Coronavirus 2 01/02/2024 04:26:11 Negative N egative Final 2019 Novel Coronavirus not d etected.

This express test was developed and its performance characteristics determined by [facility]. It has not been cleared or approved by the U.S. Food and Drug Administration (FDA). FDA does not require this test to go thru premarket FDA review. This test is used for clinical purposes. It should not be regarded as investigational or for research. This laboratory is certified under the Clinical Laboratory Improvement Amendments (CLIA) as qualified to perform high complexity clinical laboratory testing.

This test is a nucleic acid amplification test (NAAT), a reverse transcriptase polymerase chain reaction (RT-PCR) test, or a Centers for Disease Control-acceptable equivalent. The test is performed in a high complexity Clinical Laboratory Improvement Amendments-(CLIA) certified laboratory. The test is acceptable for SARS-CoV-2 diagnosis, surveillance, and travel within the [place] and to most countries. Please check with local testing authorities about requirements before travel.

The validation of bronchial specimens, tracheal aspirates, and sputum for this assay was developed and performance characteristics determined by [facility]. The validation of alternate specimen types has not been cleared or approved by the U.S. Food and Drug Administration (FDA). It has been determined that such clearance is not necessary. Performing Location LABORATORY [facility] - [address] [place] [address]
--- OUTSIDE RECORDS SUMMARY | 2024-01-02 14:37 | External Medical Summary ---
Author Name Unknown Address Unknown Organization K1F:LABORATORY [facility] - [address] [place] [address] Ave. [place] [address] Laboratory Report Ordering Provider Test Date Status JORGE LMARLEN 01/02/2024 04:25:21 Final Observation Date Value Abnormality Reference (Units ) Status WBC, Total 01/02/2024 04:25:21 9.87 4.00-10.80 (K/uL) Final RBC 01/02/2024 04:25:21 4.61 3.85-5.15 (M/uL) Final Hemoglobin 01/02/2024 04:25:21 15.2 12.0-15.3 (g/dL) Final HCT 01/02/2024 04:25:21 44.7 36.0-45.2 (%) Final MCV 01/02/2024 04:25:21 97.0 81.5-97.5 (fL) Final MCH 01/02/2024 04:25:21 33.0 27.0-34.0 (pg) Final MCHC 01/02/2024 04:25:21 34.0 32.0-36.0 (g/dL) Final RDW 01/02/2024 04:25:21 13.3 11.5-15.5 (%) Final Platelets 01/02/2024 04:25:21 161 140-400 (K/uL) Final MPV 01/02/2024 04:25:21 11.0 6.6-11.1 (fL) Final Nucleated erythrocytes/100 leukocytes [Ratio] in Blood by Automated count 01/02/2024 04:25:21 0 <=0 (/100 WBCs) Final Performing Location LABORATORY [facility] - [address] [place] [address]
--- OUTSIDE RECORDS SUMMARY | 2024-01-02 14:37 | External Medical Summary ---
Author Name Unknown Address Unknown Organization K1F:LABORATORY [facility] - [address] [place] [address] Laboratory Report Ordering Provider Test Date Status MARLEN COATS 01/02/2024 04:55:26 Final Observation Date Value Abnormality Reference (Units ) Status ABO 01/02/2024 04:55:26 A Final RH 01/02/2024 04:55:26 Positive Final Performing Location LABORATORY [facility] - [address] [place] [address]
--- OUTSIDE RECORDS SUMMARY | 2024-01-02 14:37 | External Medical Summary ---
Author Name Unknown Address Unknown Organization K1F:LABORATORY [facility] - [address] [facility] [place] [address] Laboratory Report Ordering Provider Test Date Status MARLEN COATS 01/02/2024 04:25:21 Final Observation Date Value Abnormality Reference (Units ) Status SYNC LEUKOCYTES IN BLOOD BY AUTOMATED COUNT 01/02/2024 04:25:21 9.87 4.00-10.80 (K/uL) Final Segs 01/02/2024 04:25:21 76.4 Above high normal 40.0-75.0 (%) Final Lymphs % 01/02/2024 04:25:21 15.7 Below low normal 18.0-42.0 (%) Final Monos 01/02/2024 04:25:21 5.8 1.0-11.0 (%) Final Eosinophils 01/02/2024 04:25:21 1.0 0.0-6.0 (%) Final Basos 01/02/2024 04:25:21 0.7 0.0-2.0 (%) Final Immature Granulocyte, Percent 01/02/2024 04:25:21 0.4 0.0-2.0 (%) Final Absolute Segs 01/02/2024 04:25:21 7.54 1.80-7.70 (K/uL) Final Lymphs, absolute 01/02/2024 04:25:21 1.55 1.00-4.80 (K/ul) Final Monos, Abs 01/02/2024 04:25:21 0.57 0.00-1.10 (K/uL) Final Eos, Abs 01/02/2024 04:25:21 0.10 0.00-0.70 (K/uL) Final Basos, Abs 01/02/2024 04:25:21 0.07 0.00-0.20 (K/uL) Final Immature Granulocytes, Number 01/02/2024 04:25:21 0.04 0.00-0.20 (K/uL) Final Performing Location LABORATORY [address] the[place]. [place] [address]
--- OUTSIDE RECORDS SUMMARY | 2024-01-02 14:37 | External Medical Summary ---
Author Name Unknown Address Unknown Organization K1F:LABORATORY [facility] - [place] [address] Laboratory Report Ordering Provider Test Date Status MARLEN COATS 01/02/2024 05:38:59 Final Observation Date Value Abnormality Reference (Units ) Status Troponin T 01/02/2024 05:38:59 50 Above high normal < =14 (ng/L) Final Performing Location LABORATORY [facility] - [address] [place] [address]
--- OUTSIDE RECORDS SUMMARY | 2024-01-02 14:37 | External Medical Summary ---
Author Name Unknown Address Unknown Organization K1F:LABORATORY [facility] - [address] [place] [address] Laboratory Report Ordering Provider Test Date Status MARLEN COATS 01/02/2024 04:25:21 Final Observation Date Value Abnormality Reference (Units ) Status ABO 01/02/2024 04:25:21 A Final RH 01/02/2024 04:25:21 Positive Final RED BLOOD CELL ANTIBODY SCREEN 01/02/2024 04:25:21 Negative Final SPECIMEN EXPIRATION DATE 01/02/2024 04:25:21 01/05/2024 23:59 Final Performing Location LABORATORY [facility] - [address] [place] [address]
[2024-01-02] MEDS: METOPROLOL TARTRATE 25 MG TAB PO SCH (15:22)
[2024-01-02] MEDS: SODIUM CHLORIDE 0.9% 1,000 ML IV SCH (15:22)
[2024-01-02] MEDS: NICOTINE 14 MG/24 HR PATCH TD SCH (19:27)
[2024-01-02] MEDS ORDERED: LORazepam 3 MG in SYRINGE 1.5 ML IV PRN (20:00)
[2024-01-02] MEDS ORDERED: Ativan IV Alcohol Withdrawal--Active Protocol IV PRN (20:00)
[2024-01-02] MEDS ORDERED: LORazepam 2 MG in SYRINGE 1 ML IV PRN (20:00)
[2024-01-02] MEDS: TICAGRELOR 90 MG TAB PO SCH (20:23)
[2024-01-02] MEDS: LORazepam 1 MG in SYRINGE 0.5 ML IV PRN (20:40)
[2024-01-02] MEDS: LABETALOL HCL IV 5 MG/ML 20ML IV STA (21:00)
--- NOTE | 2024-01-02 21:08 | XCELERA ---
[id number] \\[id number]
[2024-01-02] MEDS: hydrALAZINE HCL 20 MG/ML VIAL IV STA (23:50)
[2024-01-03 05:01] LABS: Basophils # (auto) 0.04 K/uL (0.00-0.20); Basophils % (auto) 0.4 %; Eosinophils # (auto) 0.03 K/uL (0.00-0.50); Eosinophils % (auto) 0.3 %; Hematocrit (blood only) 33.3 % (37.0-47.0); Hemoglobin 11.3 g/dl (12.0-16.0); Immature Granulocytes # (auto) 0.04 K/uL (0.01-0.20); Immature Granulocytes % (auto) 0.4 %; Lymphocytes # (auto) 1.17 K/uL (1.20-3.40); Lymphocytes % (auto) 13.1 %; Mean Corpuscular Hemoglobin 32.7 pg (25.0-34.0); Mean Corpuscular Hgb Conc 33.9 g/dL (32.0-36.0); Mean Corpuscular Volume 96.2 fL (80.0-100.0); Mean Platelet Volume 11.8 fL (9.4-12.4); Monocytes # (auto) 0.81 K/uL (0.11-0.59); Monocytes % (auto) 9.1 %; Neutrophils # (auto) 6.81 K/uL (1.40-6.50); Neutrophils % (auto) 76.7 %; Platelet Count 122 K/uL (130-400); RDW Coefficient of Variation 13.5 % (11.5-14.5); RDW Standard Deviation 48.1 fL (36.4-46.3); Red Blood Count 3.46 M/uL (4.20-5.40)
[2024-01-03 05:18] LABS: BUN Creatinine Ratio 13.3 (10-20); Chol HDL Ratio 4.8 (0-5); Creatinine Clr Calc Pharmacy 33.5 ml/min; Est GFR (African American) 54.7 ml/min; Est GFR (Non-African American) 47.2 ml/min; Potassium 3.7 mmol/L (3.5-5.1)
--- NOTE | 2024-01-03 06:29 | Electrocardiogram Report ---
Test Reason : Blood Pressure : / mmHG Vent. Rate : 082 BPM Atrial Rate : 082 BPM P-R Int : 134 ms QRS Dur : 122 ms QT Int : 436 ms P-R-T Axes : 062 -68 -32 degrees QTc Int : 509 ms Sinus rhythm with occasional Premature ventricular complexes Left axis deviation Right bundle branch block T wave abnormality, consider inferior ischemia Abnormal ECG No previous ECGs available Confirmed by Madhu Brunson ([id number]) on 01/03/2024 6:28:28 AM Referred By: Luan Thomas Confirmed By:Madhu Brunson
--- NOTE | 2024-01-03 06:30 | Electrocardiogram Report ---
Test Reason : Blood Pressure : / mmHG Vent. Rate : 079 BPM Atrial Rate : 079 BPM P-R Int : 142 ms QRS Dur : 118 ms QT Int : 436 ms P-R-T Axes : 069 -70 -43 degrees QTc Int : 499 ms Normal sinus rhythm Left axis deviation Right bundle branch block T wave abnormality, consider inferolateral ischemia Abnormal ECG When compared with ECG of 02-JAN-2024 08:26, Premature ventricular complexes are no longer Present Confirmed by Madhu Brunson ([id number]) on 01/03/2024 6:30:00 AM Referred By: Luan Thomas Confirmed By:Madhu Brunson
[2024-01-03 07:17] LABS: Estimated Average Glucose 134 mg/dl; Hemoglobin A1C 6.3 % (4.5-5.6)
--- NOTE | 2024-01-03 07:54 | Critical Care Progress Note ---
Date of Service January 03, 2024 Assessment & Plan (1) Acute ST elevation myocardial infarction (STEMI) of inferior wall: (2) Bradycardia: (3) History of dementia: Plan Impression: 78-year-old female with multifocal coronary disease presenting with acute ST elevation inferior myocardial infarction status post outside hospital TNK administration as well as salvage cardiac catheterization 01/02/2024 with stent placement to the right coronary artery. She has multifocal disease and may require additional procedures in the future. Recommendations: 1. Acute coronary syndrome: Discussed with cardiology. Continue beta-kimberly, ANNE MARIE inhibitor, and statin. Will need outpatient cardiac rehab. May require future coronary angiography and intervention but this can likely be performed as an outpatient once the patient has recovered. 2. Bradycardia: Likely secondary to labetalol as well as the inferior OK. Resolved currently. Follow clinically. 3. Hypotension: Resolved. 4. Dementia/alcohol withdrawal: Continue Aricept. The patient received Ativan last night. She is sedated this morning and will avoid additional benzodiazepines. If needed, would pursue a very low-dose. Patient is stable to transfer out of the intensive care unit. Critical care services will sign off Thanks for the opportunity participating the care of this patient. Admission and Anticipated Discharge Date Admission Date: January 02, 2024 Subjective Patient seen and examined. EMR reviewed. Discussed with overnight critical care VALERY and bedside critical care nurse. The patient is somnolent this morning. There was apparently concern about alcohol withdrawal and she received Ativan overnight. She denies any chest pain when she is aroused. No problems breathing. She denies any pain in her arm. Review of Systems Review of Systems: Unobtainable due to reduced consciousness Physical Exam Physical Exam: General: Slightly sedated HEENT: Sclerae anicteric Lungs: Clear anteriorly Cardiac: Regular rate and rhythm, no murmurs. Vascular: 2+ radial Abdomen: Soft, nontender Extremities: Extensive ecchymoses on the left arm. Small hematoma at the antecubital site. Pulses intact Neuro: Nonfocal Psych: Alert orient x3, normal affect and mood Results & Data Results & Data Vital Signs (Past 12 Hours) Vital Signs Temp Pulse Pulse Resp BP BP Pulse Ox 01/03/24 06:58 37.0 C 72 22 151/72 H 90 01/03/24 06:20 74 22 01/03/24 06:10 70 19 01/03/24 06:00 79 20 01/03/24 05:50 81 19 01/03/24 05:40 82 24 01/03/24 05:30 72 21 01/03/24 05:20 83 21 01/03/24 05:10 82 22 01/03/24 05:02 90 22 01/03/24 05:02 143/83 H 01/03/24 05:00 82 24 01/03/24 04:50 69 18 01/03/24 04:40 75 20 01/03/24 04:30 78 32 H 01/03/24 04:20 78 20 01/03/24 04:10 76 19 01/03/24 04:00 143/68 H 01/03/24 04:00 87 23 01/03/24 03:50 82 21 01/03/24 03:40 79 20 01/03/24 03:30 80 19 01/03/24 03:20 82 19 01/03/24 03:10 75 21 01/03/24 03:00 81 22 01/03/24 02:50 78 20 01/03/24 02:40 81 25 H 01/03/24 02:30 81 22 01/03/24 02:20 79 21 01/03/24 02:16 36.6 C 01/03/24 02:11 77 20 01/03/24 02:00 74 23 01/03/24 02:00 124/62 01/03/24 01:50 76 21 01/03/24 01:40 85 25 H 01/03/24 01:30 77 20 01/03/24 01:20 79 22 01/03/24 01:10 74 19 01/03/24 01:00 131/60 01/03/24 01:00 81 23 01/03/24 00:50 78 21 01/03/24 00:40 87 23 01/03/24 00:30 82 23 01/03/24 00:20 82 23 01/03/24 00:10 82 01/03/24 00:02 103/60 01/03/24 00:02 81 01/03/24 00:00 80 01/03/24 00:00 77 01/02/24 23:50 77 01/02/24 23:40 68 01/02/24 23:30 64 01/02/24 23:20 71 01/02/24 23:10 66 01/02/24 23:00 168/63 H 01/02/24 23:00 66 01/02/24 22:50 69 01/02/24 22:40 65 01/02/24 22:30 175/74 H 01/02/24 22:30 67 01/02/24 22:20 62 01/02/24 22:10 64 01/02/24 22:00 172/78 H 01/02/24 22:00 63 01/02/24 21:50 63 01/02/24 21:49 01/02/24 21:40 62 01/02/24 21:30 140/71 01/02/24 21:30 66 01/02/24 21:23 63 165/110 H 01/02/24 21:20 75 01/02/24 21:10 68 01/02/24 21:01 165/110 H 01/02/24 21:01 75 01/02/24 21:00 71 01/02/24 21:00 74 206/98 H 01/02/24 20:51 67 01/02/24 20:40 65 01/02/24 20:31 206/98 H 01/02/24 20:31 67 01/02/24 20:30 76 01/02/24 20:20 68 23 01/02/24 20:15 60 23 01/02/24 20:15 194/93 H 01/02/24 20:10 59 L 22 01/02/24 20:01 187/126 H 01/02/24 20:01 88 21 01/02/24 20:00 36.6 C 01/02/24 20:00 76 18 O2 Del Method O2 Flow Rate 01/03/24 06:58 Nasal Cannula 2 01/03/24 06:20 01/03/24 06:10 01/03/24 06:00 01/03/24 05:50 01/03/24 05:40 01/03/24 05:30 01/03/24 05:20 01/03/24 05:10 01/03/24 05:02 01/03/24 05:02 01/03/24 05:00 01/03/24 04:50 01/03/24 04:40 01/03/24 04:30 01/03/24 04:20 01/03/24 04:10 01/03/24 04:00 01/03/24 04:00 01/03/24 03:50 01/03/24 03:40 01/03/24 03:30 01/03/24 03:20 01/03/24 03:10 01/03/24 03:00 01/03/24 02:50 01/03/24 02:40 01/03/24 02:30 01/03/24 02:20 01/03/24 02:16 01/03/24 02:11 01/03/24 02:00 01/03/24 02:00 01/03/24 01:50 01/03/24 01:40 01/03/24 01:30 01/03/24 01:20 01/03/24 01:10 01/03/24 01:00 01/03/24 01:00 01/03/24 00:50 01/03/24 00:40 01/03/24 00:30 01/03/24 00:20 01/03/24 00:10 01/03/24 00:02 01/03/24 00:02 01/03/24 00:00 01/03/24 00:00 01/02/24 23:50 01/02/24 23:40 01/02/24 23:30 01/02/24 23:20 01/02/24 23:10 01/02/24 23:00 01/02/24 23:00 01/02/24 22:50 01/02/24 22:40 01/02/24 22:30 01/02/24 22:30 01/02/24 22:20 01/02/24 22:10 01/02/24 22:00 01/02/24 22:00 01/02/24 21:50 01/02/24 21:49 Nasal Cannula 2 01/02/24 21:40 01/02/24 21:30 01/02/24 21:30 01/02/24 21:23 01/02/24 21:20 01/02/24 21:10 01/02/24 21:01 01/02/24 21:01 01/02/24 21:00 01/02/24 21:00 01/02/24 20:51 01/02/24 20:40 01/02/24 20:31 01/02/24 20:31 01/02/24 20:30 01/02/24 20:20 01/02/24 20:15 01/02/24 20:15 01/02/24 20:10 01/02/24 20:01 01/02/24 20:01 01/02/24 20:00 01/02/24 20:00 Critical Care Results & Data Vital Signs (Past 12 Hours) Vital Signs Temp Pulse Pulse Resp BP BP Pulse Ox 01/03/24 06:58 37.0 C 72 22 151/72 H 90 01/03/24 06:20 74 22 01/03/24 06:10 70 19 01/03/24 06:00 79 20 01/03/24 05:50 81 19 01/03/24 05:40 82 24 01/03/24 05:30 72 21 01/03/24 05:20 83 21 01/03/24 05:10 82 22 01/03/24 05:02 90 22 01/03/24 05:02 143/83 H 01/03/24 05:00 82 24 01/03/24 04:50 69 18 01/03/24 04:40 75 20 01/03/24 04:30 78 32 H 01/03/24 04:20 78 20 01/03/24 04:10 76 19 01/03/24 04:00 143/68 H 01/03/24 04:00 87 23 01/03/24 03:50 82 21 01/03/24 03:40 79 20 01/03/24 03:30 80 19 01/03/24 03:20 82 19 01/03/24 03:10 75 21 01/03/24 03:00 81 22 01/03/24 02:50 78 20 01/03/24 02:40 81 25 H 01/03/24 02:30 81 22 01/03/24 02:20 79 21 01/03/24 02:16 36.6 C 01/03/24 02:11 77 20 01/03/24 02:00 74 23 01/03/24 02:00 124/62 01/03/24 01:50 76 21 01/03/24 01:40 85 25 H 01/03/24 01:30 77 20 01/03/24 01:20 79 22 01/03/24 01:10 74 19 01/03/24 01:00 131/60 01/03/24 01:00 81 23 01/03/24 00:50 78 21 01/03/24 00:40 87 23 01/03/24 00:30 82 23 01/03/24 00:20 82 23 01/03/24 00:10 82 01/03/24 00:02 103/60 01/03/24 00:02 81 01/03/24 00:00 80 01/03/24 00:00 77 01/02/24 23:50 77 01/02/24 23:40 68 01/02/24 23:30 64 01/02/24 23:20 71 01/02/24 23:10 66 01/02/24 23:00 168/63 H 01/02/24 23:00 66 01/02/24 22:50 69 01/02/24 22:40 65 01/02/24 22:30 175/74 H 01/02/24 22:30 67 01/02/24 22:20 62 01/02/24 22:10 64 01/02/24 22:00 172/78 H 01/02/24 22:00 63 01/02/24 21:50 63 01/02/24 21:49 01/02/24 21:40 62 01/02/24 21:30 140/71 01/02/24 21:30 66 01/02/24 21:23 63 165/110 H 01/02/24 21:20 75 01/02/24 21:10 68 01/02/24 21:01 165/110 H 01/02/24 21:01 75 01/02/24 21:00 71 01/02/24 21:00 74 206/98 H 01/02/24 20:51 67 01/02/24 20:40 65 01/02/24 20:31 206/98 H 01/02/24 20:31 67 01/02/24 20:30 76 01/02/24 20:20 68 23 01/02/24 20:15 60 23 01/02/24 20:15 194/93 H 01/02/24 20:10 59 L 22 01/02/24 20:01 187/126 H 01/02/24 20:01 88 21 01/02/24 20:00 36.6 C 01/02/24 20:00 76 18 O2 Del Method O2 Flow Rate 01/03/24 06:58 Nasal Cannula 2 01/03/24 06:20 01/03/24 06:10 01/03/24 06:00 01/03/24 05:50 01/03/24 05:40 01/03/24 05:30 01/03/24 05:20 01/03/24 05:10 01/03/24 05:02 01/03/24 05:02 01/03/24 05:00 01/03/24 04:50 01/03/24 04:40 01/03/24 04:30 01/03/24 04:20 01/03/24 04:10 01/03/24 04:00 01/03/24 04:00 01/03/24 03:50 01/03/24 03:40 01/03/24 03:30 01/03/24 03:20 01/03/24 03:10 01/03/24 03:00 01/03/24 02:50 01/03/24 02:40 01/03/24 02:30 01/03/24 02:20 01/03/24 02:16 01/03/24 02:11 01/03/24 02:00 01/03/24 02:00 01/03/24 01:50 01/03/24 01:40 01/03/24 01:30 01/03/24 01:20 01/03/24 01:10 01/03/24 01:00 01/03/24 01:00 01/03/24 00:50 01/03/24 00:40 01/03/24 00:30 01/03/24 00:20 01/03/24 00:10 01/03/24 00:02 01/03/24 00:02 01/03/24 00:00 01/03/24 00:00 01/02/24 23:50 01/02/24 23:40 01/02/24 23:30 01/02/24 23:20 01/02/24 23:10 01/02/24 23:00 01/02/24 23:00 01/02/24 22:50 01/02/24 22:40 01/02/24 22:30 01/02/24 22:30 01/02/24 22:20 01/02/24 22:10 01/02/24 22:00 01/02/24 22:00 01/02/24 21:50 01/02/24 21:49 Nasal Cannula 2 01/02/24 21:40 01/02/24 21:30 01/02/24 21:30 01/02/24 21:23 01/02/24 21:20 01/02/24 21:10 01/02/24 21:01 01/02/24 21:01 01/02/24 21:00 01/02/24 21:00 01/02/24 20:51 01/02/24 20:40 01/02/24 20:31 01/02/24 20:31 01/02/24 20:30 01/02/24 20:20 01/02/24 20:15 01/02/24 20:15 01/02/24 20:10 01/02/24 20:01 01/02/24 20:01 01/02/24 20:00 01/02/24 20:00 Lab & Micro Results (Past 24 Hours) RBC 3.46 M/uL (4.20-5.40) L 01/03/24 WBC 8.90 K/ul (4.8-10.8) 01/03/24 Hgb 11.3 g/dl (12.0-16.0) L 01/03/24 Hct 33.3 % (37.0-47.0) L 01/03/24 MCV 96.2 fL (80.0-100.0) 01/03/24 MCH 32.7 pg (25.0-34.0) 01/03/24 MCHC 33.9 g/dL (32.0-36.0) 01/03/24 RDW Standard Deviation 48.1 fL (36.4-46.3) H 01/03/24 RDW Coefficient of Variation 13.5 % (11.5-14.5) 01/03/24 Plt Count 122 K/uL (130-400) L 01/03/24 MPV 11.8 fL (9.4-12.4) 01/03/24 Neutrophils (%) (Auto) 76.7 % 01/03/24 Lymphocytes (%) (Auto) 13.1 % 01/03/24 Monocytes # (Auto) 0.81 K/uL (0.11-0.59) H 01/03/24 Eosinophils # (Auto) 0.03 K/uL (0.00-0.50) 01/03/24 Immature Granulocyte % (Auto) 0.4 % 01/03/24 Neutrophils # (Auto) 6.81 K/uL (1.40-6.50) H 01/03/24 Lymphocytes # (Auto) 1.17 K/uL (1.20-3.40) L 01/03/24 Monocytes # (Auto) 0.81 K/uL (0.11-0.59) H 01/03/24 Eosinophils # (Auto) 0.03 K/uL (0.00-0.50) 01/03/24 Basophils # (Auto) 0.04 K/uL (0.00-0.20) 01/03/24 Immature Granulocyte # (Auto) 0.04 K/uL (0.01-0.20) 4 Na 141 mmol/L (136-145) 01/03/24 K 3.7 mmol/L (3.5-5.1) 01/03/24 Cl 109 mmol/L (98-107) H 01/03/24 CO2 24 mmol/L (21-32) 01/03/24 Anion Gap 8 (3-11) 01/03/24 BUN 15 mg/dl (6-23) 01/03/24 Creatinine 1.13 mg/dl (0.6-1.2) 01/03/24 Estimated GFR ( Amer) 54.7 ml/min 01/03/24 Estimated GFR (Non-Af Amer) 47.2 ml/min 01/03/24 BUN/Creatinine Ratio 13.3 (10-20) 01/03/24 Glu 129 mg/dl (70-99(Fasting)) H 01/03/24 Ca 9.0 mg/dl (8.6-10.3) 01/03/24 Calcium Level 9.0 mg/dl (8.6-10.3) 01/03/24 04:32 I & O Totals 24 Hours 01/02/24 01/03/24 01/04/24 06:59 06:59 06:59 Intake Total 1000 / 1000 Output Total 500 / 500 Balance 500 / 500 Cumulative 01/02/24 thru 01/03/24 06:00 Intake Total 1000 Output Total 500 Balance 500 RT Ventilator Mngmt (Last Documented) Ventilator Ordered Settings Respiratory Rate 22 01/03/24 06:58 Ventilator - PT Measurements Respiratory Rate 22 Coding Level of Care Code 17046 SUB INP/OBS CARE 2/35MIN Diagnoses Acute ST elevation myocardial infarction (STEMI) of inferior wall I21.19 Bradycardia R00.1 History of dementia Z86.59
--- NOTE | 2024-01-03 08:09 | Hospitalist Progress Note ---
Date of Service January 03, 2024 Assessment & Plan (1) Acute ST elevation myocardial infarction (STEMI) of inferior wall: (2) S/P cardiac catheterization: (3) Coronary artery disease: Plan: Danita Bull is a 78y/o F with PMHx of CAD, urinary incontinence, TIA [2019], dementia, hyperlipidemia, b/l carotid artery stenosis, GERD, ruptured AAA s/p endovascular repair [04/16/2022], osteoarthritis/RA and fibromyalgia who presented to [facility] following transfer from [facility] to undergo cardiac catheterization for tx of an acute inferior STEMI. According to documentation from [facility], patient presented to their ED via EMS with c/c of chest pain starting sometime in the binder caser hours today. EKG performed by EMS revealed an inferior STEMI, and aspiring was provided en route to the hospital. She was reported to be at baseline yesterday. The chest pain has lingered since it began in the binder caser hours, and her pain level was recorded being ~8/10 upon arrival to the [facility] ED. Initial trop in [facility] ED was 47 @ 04:25, repeat trop @ 05:38 increased to 50. TNK and Brilinta initiated in [facility] ED. Labetalol also given in [facility] ED, as her SBP was in the 200s. SBP improved to the 150s following administration. Low-dose fentanyl was also given for pain. Patient did become bradycardic in the 30s, was ultimately given 1mg of atropine and started on a dopamine infusion. Patient ultimately transferred here to [facility] via [facility] ambulance. Patient underwent successful cardiac catheterization of mid RCA w/ single drug- eluding stent placement, performed by Dr. Thomas. He mentioned further evaluation/management of the mid circumflex artery, as 80% occlusion was noted during the cardiac catheterization procedure. Continue to f/u on Dr. Thomas' recommendation/plan for addressing the mid circumflex artery occlusion. Of note, 30-40% distal left main artery and 60% mid LAD artery occlusions noted during procedure as well. She is now off the dopamine drip s/p cardiac catheterization. HR currently holding steady in the 80s. Acute ST elevation myocardial infarction (STEMI) of inferior wall: Plan per cardiology: Post rescue PCI to mid RCA with BAILEY following thrombolytics Severe nonculprit [id number]% mid LCx, 60% mid LAD, 30% distal LM 2. ICMEF 35-40%, inferior/inferolateral wall motion abnormality 3. PADocclusive carotid artery disease, prior AAA post EVAR 4. Tobacco abuse Stable from a cardiac standpoint. No recurrent chest pain Hemodynamically and electrically stable No significant congestion on exam Ecchymosis but no evidence of significant right radial artery access site complications. Continue DAPT with aspirin, ticagrelor Lisinopril increased from 5 to 10 mg today. Increase metoprolol to 50 mg twice daily Continue current statin Consider addition of spironolactone tomorrow No need for LifeVest In the setting of mental status issues, acute LV dysfunction and coronary anatomy will defer possible staged PCI of circumflex to outpatient setting. From a cardiac standpoint okay with transfer to telemetry today. (4) Hyperlipidemia: Plan: -Patient was not taking any cholesterol medications at home. -Will be started on high-dose statin therapy per cardiac protocol. (5) History of dementia: Plan: -Unknown severity of dementia status, pt is actively disoriented to location. -Monitor for any signs of delirium during admission (6) GERD (gastroesophageal reflux disease): Plan: -Continue pantoprazole Pt's , Jeremy, would like to be updated daily via mobile cellphone communication on her progress. He cannot drive currently d/t low BP. Jeremy's Cell Jeremy was visiting in the hospital today (01/02) -I also updated him over the phone today, he says that they were looking into rehab, and they were working with her PCP. He is interested for Danita to be placed to rehab at discharge from the hospital. Code Status: Full Code PCP: Sreedhar Jackson MD Dispo: ICU -> PCU Admission and Anticipated Discharge Date Admission Date: January 02, 2024 Subjective Pt seen in follow up of inferior STEMI, transferred from [facility], now s/p BAILEY to [facility] Currently laying in bed in ICU, sitter present as pt confused Pt is currently cooperative with me but she is not aware why she is in the hospital, has hx of dementia Discussed with RN and with the pt's Pt currently denies any chest pain, palpitations, shortness of breath Review of Systems Review of Systems: All systems reviewed & are unremarkable except as noted in Subjective Physical Exam Physical Exam: GENERAL APPEARANCE: drowsy frail F in NAD HEENT: NC, AT. MMM. EOMI, clear conjunctiva NECK: Supple HEART: Normal rate and regular rhythm, normal S1/S1, no m/r/g LUNGS: CTAB, moving air well. No crackles or wheezes are heard. ABDOMEN: Soft, nontender, nondistended with + bowel sounds EXTREMITIES: No LE edema, moves extremities, + ecchymoses on UEs NEUROLOGICAL: Drowsy but cooperative, she is not aware about what happened to her in the hospital. speech fluent, but slow, no facial asymmetry. moving all 4 extremities. Skin: + ecchymosis from access, scattered purpuric lesions on right chest, no obvious wounds or skin tears Results & Data Results & Data Vital Signs (Past 12 Hours) Vital Signs Temp Pulse Pulse Resp BP BP Pulse Ox 01/03/24 06:58 37.0 C 72 22 151/72 H 90 01/03/24 06:20 74 22 01/03/24 06:10 70 19 01/03/24 06:00 79 20 01/03/24 05:50 81 19 01/03/24 05:40 82 24 01/03/24 05:30 72 21 01/03/24 05:20 83 21 01/03/24 05:10 82 22 01/03/24 05:02 90 22 01/03/24 05:02 143/83 H 01/03/24 05:00 82 24 01/03/24 04:50 69 18 01/03/24 04:40 75 20 01/03/24 04:30 78 32 H 01/03/24 04:20 78 20 01/03/24 04:10 76 19 01/03/24 04:00 143/68 H 01/03/24 04:00 87 23 01/03/24 03:50 82 21 01/03/24 03:40 79 20 01/03/24 03:30 80 19 01/03/24 03:20 82 19 01/03/24 03:10 75 21 01/03/24 03:00 81 22 01/03/24 02:50 78 20 01/03/24 02:40 81 25 H 01/03/24 02:30 81 22 01/03/24 02:20 79 21 01/03/24 02:16 36.6 C 01/03/24 02:11 77 20 01/03/24 02:00 74 23 01/03/24 02:00 124/62 01/03/24 01:50 76 21 01/03/24 01:40 85 25 H 01/03/24 01:30 77 20 01/03/24 01:20 79 22 01/03/24 01:10 74 19 01/03/24 01:00 131/60 01/03/24 01:00 81 23 01/03/24 00:50 78 21 01/03/24 00:40 87 23 01/03/24 00:30 82 23 01/03/24 00:20 82 23 01/03/24 00:10 82 01/03/24 00:02 103/60 01/03/24 00:02 81 01/03/24 00:00 80 01/03/24 00:00 77 01/02/24 23:50 77 01/02/24 23:40 68 01/02/24 23:30 64 01/02/24 23:20 71 01/02/24 23:10 66 01/02/24 23:00 168/63 H 01/02/24 23:00 66 01/02/24 22:50 69 01/02/24 22:40 65 01/02/24 22:30 175/74 H 01/02/24 22:30 67 01/02/24 22:20 62 01/02/24 22:10 64 01/02/24 22:00 172/78 H 01/02/24 22:00 63 01/02/24 21:50 63 01/02/24 21:49 01/02/24 21:40 62 01/02/24 21:30 140/71 01/02/24 21:30 66 01/02/24 21:23 63 165/110 H 01/02/24 21:20 75 01/02/24 21:10 68 01/02/24 21:01 165/110 H 01/02/24 21:01 75 01/02/24 21:00 71 01/02/24 21:00 74 206/98 H 01/02/24 20:51 67 01/02/24 20:40 65 01/02/24 20:31 206/98 H 01/02/24 20:31 67 01/02/24 20:30 76 01/02/24 20:20 68 23 01/02/24 20:15 60 23 01/02/24 20:15 194/93 H 01/02/24 20:10 59 L 22 O2 Del Method O2 Flow Rate 01/03/24 06:58 Nasal Cannula 2 01/03/24 06:20 01/03/24 06:10 01/03/24 06:00 01/03/24 05:50 01/03/24 05:40 01/03/24 05:30 01/03/24 05:20 01/03/24 05:10 01/03/24 05:02 01/03/24 05:02 01/03/24 05:00 01/03/24 04:50 01/03/24 04:40 01/03/24 04:30 01/03/24 04:20 01/03/24 04:10 01/03/24 04:00 01/03/24 04:00 01/03/24 03:50 01/03/24 03:40 01/03/24 03:30 01/03/24 03:20 01/03/24 03:10 01/03/24 03:00 01/03/24 02:50 01/03/24 02:40 01/03/24 02:30 01/03/24 02:20 01/03/24 02:16 01/03/24 02:11 01/03/24 02:00 01/03/24 02:00 01/03/24 01:50 01/03/24 01:40 01/03/24 01:30 01/03/24 01:20 01/03/24 01:10 01/03/24 01:00 01/03/24 01:00 01/03/24 00:50 01/03/24 00:40 01/03/24 00:30 01/03/24 00:20 01/03/24 00:10 01/03/24 00:02 01/03/24 00:02 01/03/24 00:00 01/03/24 00:00 01/02/24 23:50 01/02/24 23:40 01/02/24 23:30 01/02/24 23:20 01/02/24 23:10 01/02/24 23:00 01/02/24 23:00 01/02/24 22:50 01/02/24 22:40 01/02/24 22:30 01/02/24 22:30 01/02/24 22:20 01/02/24 22:10 01/02/24 22:00 01/02/24 22:00 01/02/24 21:50 01/02/24 21:49 Nasal Cannula 2 01/02/24 21:40 01/02/24 21:30 01/02/24 21:30 01/02/24 21:23 01/02/24 21:20 01/02/24 21:10 01/02/24 21:01 01/02/24 21:01 01/02/24 21:00 01/02/24 21:00 01/02/24 20:51 01/02/24 20:40 01/02/24 20:31 01/02/24 20:31 01/02/24 20:30 01/02/24 20:20 01/02/24 20:15 01/02/24 20:15 01/02/24 20:10 Laboratory Results 01/03/24 01/02/24 01/02/24 Range/Units 04:32 10:30 09:14 WBC 8.90 (4.8-10.8) K/ul RBC 3.46 L (4.20-5.40) M/uL Hgb 11.3 L (12.0-16.0) g/dl Hct 33.3 L (37.0-47.0) % MCV 96.2 (80.0-100.0) fL MCH 32.7 (25.0-34.0) pg MCHC 33.9 (32.0-36.0) g/dL RDW Std Deviation 48.1 H (36.4-46.3) fL RDW Coeff of Freddy 13.5 (11.5-14.5) % Plt Count 122 L (130-400) K/uL MPV 11.8 (9.4-12.4) fL Immature Gran % (Auto) 0.4 % Neut % (Auto) 76.7 % Lymph % (Auto) 13.1 % [place] % (Auto) 9.1 % Eos % (Auto) 0.3 % Baso % (Auto) 0.4 % Neut # (Auto) 6.81 H (1.40-6.50) K/uL Lymph # (Auto) 1.17 L (1.20-3.40) K/uL [place] # (Auto) 0.81 H (0.11-0.59) K/uL Eos # (Auto) 0.03 (0.00-0.50) K/uL Baso # (Auto) 0.04 (0.00-0.20) K/uL Immature Gran # (Auto) 0.04 (0.01-0.20) K/uL Activ Coag Time Kaolin 293 H (94-140) SECONDS Sodium 141 (136-145) mmol/L Potassium 3.7 (3.5-5.1) mmol/L Chloride 109 H (98-107) mmol/L Carbon Dioxide 24 (21-32) mmol/L Anion Gap 8 (3-11) BUN 15 (6-23) mg/dl Creatinine 1.13 (0.6-1.2) mg/dl Est Cr Clr Drug Dosing 33.5 ml/min Est GFR ( Amer) 54.7 ml/min Est GFR (Non-Af Amer) 47.2 ml/min BUN/Creatinine Ratio 13.3 (10-20) Glucose 129 H (70-99(Fasting)) mg/dl Estimat Average Glucose 134 mg/dl Hemoglobin A1c 6.3 H (4.5-5.6) % Calcium 9.0 (8.6-10.3) mg/dl Troponin I High Sens 86020.5 H* (0-14) pg/ml Triglycerides 246 H (0-150) mg/dl Cholesterol 190 (0-200) mg/dl LDL Cholesterol, Calc 101 mg/dl VLDL Cholesterol, Calc 49 H (0-30) mg/dl HDL Cholesterol 40 mg/dl Cholesterol/HDL Ratio 4.8 (0-5) Nasal Screen MRSA (PCR) Negative (Negative) Medications Administered Current Inpatient Medications Acetaminophen (Acetaminophen 325 Mg Tab) 650 mg PO Q4H PRN PRN Reason: MILD Pain (Scale 1,2,3) Stop: 02/01/24 09:43 Aspirin (Aspirin 81 Mg Ectab) 81 mg PO QAM [facility] Stop: 02/02/24 08:59 Atorvastatin Calcium (Atorvastatin 40 Mg Tab) 40 mg PO QAM [facility] Stop: 02/02/24 08:59 Folic Acid ([facility] Acid 1 Mg Tab) [facility] [place]: 02/02/24 08:59 Potassium Chloride (K Chuck / Wtr) 10 meq in 100 mls @ 100 mls/hr IV Q1H [facility] Stop: 01/03/24 08:44 Lisinopril (Lisinopril 10 Mg Tab) 10 mg PO QAM [facility] Stop: 02/02/24 08:59 Metoprolol Tartrate (Metoprolol Tartrate 25 Mg Tab) 25 mg PO Q8H [facility] Stop: 02/01/24 13:19 Last Admin: 01/03/24 05:16 Dose: 25 mg Miscellaneous (Icu Protocol For Hyperglycemia) 1 each N/A ACHS [facility] Stop: 01/04/24 11:29 Last Admin: 01/02/24 19:27 Dose: Not Given Miscellaneous (Remove Nicoderm Patch) 1 each N/A DAILY@0859 [facility] Stop: 02/02/24 08:58 Nicotine (Nicotine 14 Mg/24 Hr Patch) 1 patch TD [facility] Stop: 02/01/24 18:14 Last Admin: 01/02/24 19:27 Dose: Not Given Ondansetron HCl (Ondansetron Inj 2 Mg/Ml 2 Ml Vial) 4 mg IV Q6H PRN PRN Reason: Nausea And Vomiting Stop: 02/01/24 09:43 Pantoprazole Sodium (Pantoprazole 40 Mg Tab) [facility] [place]: 02/02/24 08:59 Thiamine HCl (Thiamine Hcl 100 Mg Tab) [facility] [place]: 02/02/24 08:59 Ticagrelor (Ticagrelor 90 Mg Tab) 90 mg PO BID [facility] Stop: 02/01/24 20:59 Last Admin: 01/02/24 20:23 Dose: 90 mg (3) Coronary artery disease Associated angina: unspecified whether angina present Coronary Disease- Associated Artery/Lesion type: unspecified vessel or lesion type [place] vs. transplanted heart: [place] heart Qualified Code(s): I25.10 - Atherosclerotic heart disease of [place] coronary artery without angina pectoris (4) Hyperlipidemia Hyperlipidemia type: unspecified Qualified Code(s): E78.5 - Hyperlipidemia, unspecified (6) GERD (gastroesophageal reflux disease) Esophagitis presence: without esophagitis Qualified Code(s): K21.9 - Gastro- esophageal reflux disease without esophagitis
[2024-01-03] MEDS: POTASSIUM CHLORIDE / WTR 10 MEQ/100 ML PLCT IV SCH (08:28)
[2024-01-03] MEDS: ATORVASTATIN 40 MG TAB PO SCH (08:30)
[2024-01-03] MEDS: FOLIC ACID 1 MG TAB PO SCH (08:30)
[2024-01-03] MEDS: ASPIRIN 81 MG ECTAB PO SCH (08:30)
[2024-01-03] MEDS: PANTOprazole 40 MG TAB PO SCH (08:30)
[2024-01-03] MEDS: THIAMINE HCL 100 MG TAB PO SCH (08:30)
[2024-01-03] MEDS ORDERED: lisinopril 5 MG TAB PO SCH (09:00)
[2024-01-03] MEDS: lisinopril 10 MG TAB PO SCH (09:10)
--- NOTE | 2024-01-03 11:04 | Cardiology Progress Note ---
Date of Service January 03, 2024 Assessment & Plan (1) Acute ST elevation myocardial infarction (STEMI) of inferior wall: Plan: Post rescue PCI to mid RCA with BAILEY following thrombolytics Severe nonculprit [id number]% mid LCx, 60% mid LAD, 30% distal LM 2. ICMEF 35-40%, inferior/inferolateral wall motion abnormality 3. Delirium/dementiapossible alcohol withdrawal 4. Right forearm hematomastable 5. Anemia 6. Dyslipidemia 7. PADocclusive carotid artery disease, prior AAA post EVAR 8. Tobacco abuse Stable from a cardiac standpoint. No recurrent chest pain Hemodynamically and electrically stable No significant congestion on exam Ecchymosis but no evidence of significant right radial artery access site complications. Trend troponin until peak Continue DAPT with aspirin, ticagrelor Lisinopril increased from 5 to 10 mg today. Increase metoprolol to 50 mg twice daily Continue current statin Consider addition of spironolactone tomorrow No need for LifeVest In the setting of mental status issues, acute LV dysfunction and coronary anatomy will defer possible staged PCI of circumflex to outpatient setting. From a cardiac standpoint okay with transfer to telemetry today. Admission and Anticipated Discharge Date Admission Date: January 02, 2024 Subjective Patient confused this morning. Has sitter with her. Received ativan for possible alcohol withdrawal. Denies any chest pain this morning. Telemetry reviewed -- no events Review of Systems Review of Systems: All systems reviewed & are unremarkable except as noted in HPI & below Physical Exam Physical Exam: General: Resting comfortably HEENT: Sclerae anicteric Lungs: Clear to auscultation anteriorly Cardiac: Regular rate and rhythm, no murmurs. Vascular: Diffuse ecchymosis extending from hand to above elbow. No palpable hematoma. Radial pulse intact Abdomen: Soft, nontender Extremities: Well perfused, no peripheral edema Psych: Confused Results & Data Vital Signs (Past 12 Hours) Vital Signs Temp Pulse Pulse Resp BP BP Pulse Ox 01/03/24 09:52 01/03/24 09:40 80 22 01/03/24 09:30 81 24 01/03/24 09:20 77 22 01/03/24 09:10 79 25 H 01/03/24 09:00 145/76 H 01/03/24 09:00 81 23 01/03/24 08:50 81 22 01/03/24 08:40 79 23 01/03/24 08:30 84 27 H 01/03/24 08:20 80 20 01/03/24 08:10 82 24 01/03/24 08:00 01/03/24 08:00 134/72 01/03/24 08:00 79 24 01/03/24 07:50 78 21 01/03/24 07:40 74 22 01/03/24 07:30 78 21 01/03/24 07:20 72 20 93 01/03/24 07:10 69 25 H 91 01/03/24 07:00 77 26 H 85 L 01/03/24 06:58 151/72 H 01/03/24 06:58 83 24 01/03/24 06:58 98.6 F 72 22 151/72 H 90 01/03/24 06:50 82 23 01/03/24 06:47 84 01/03/24 06:40 77 19 01/03/24 06:30 81 19 01/03/24 06:20 74 22 01/03/24 06:10 70 19 01/03/24 06:00 79 20 01/03/24 05:50 81 19 01/03/24 05:40 82 24 01/03/24 05:30 72 21 01/03/24 05:20 83 21 01/03/24 05:10 82 22 01/03/24 05:02 90 22 01/03/24 05:02 143/83 H 01/03/24 05:00 82 24 01/03/24 04:50 69 18 01/03/24 04:40 75 20 01/03/24 04:30 78 32 H 01/03/24 04:20 78 20 01/03/24 04:10 76 19 01/03/24 04:00 143/68 H 01/03/24 04:00 87 23 01/03/24 03:50 82 21 01/03/24 03:40 79 20 01/03/24 03:30 80 19 01/03/24 03:20 82 19 01/03/24 03:10 75 21 01/03/24 03:00 81 22 01/03/24 02:50 78 20 01/03/24 02:40 81 25 H 01/03/24 02:30 81 22 01/03/24 02:20 79 21 01/03/24 02:16 97.9 F 01/03/24 02:11 77 20 01/03/24 02:00 74 23 01/03/24 02:00 124/62 01/03/24 01:50 76 21 01/03/24 01:40 85 25 H 01/03/24 01:30 77 20 01/03/24 01:20 79 22 01/03/24 01:10 74 19 01/03/24 01:00 131/60 01/03/24 01:00 81 23 01/03/24 00:50 78 21 01/03/24 00:40 87 23 01/03/24 00:30 82 23 01/03/24 00:20 82 23 01/03/24 00:10 82 01/03/24 00:02 103/60 01/03/24 00:02 81 01/03/24 00:00 80 01/03/24 00:00 77 01/02/24 23:50 77 01/02/24 23:40 68 01/02/24 23:30 64 01/02/24 23:20 71 01/02/24 23:10 66 01/02/24 23:00 168/63 H 01/02/24 23:00 66 O2 Del Method O2 Del Method O2 Flow Rate O2 Flow Rate 01/03/24 09:52 Nasal Cannula 2 01/03/24 09:40 01/03/24 09:30 01/03/24 09:20 01/03/24 09:10 01/03/24 09:00 01/03/24 09:00 01/03/24 08:50 01/03/24 08:40 01/03/24 08:30 01/03/24 08:20 01/03/24 08:10 01/03/24 08:00 Nasal Cannula 2 01/03/24 08:00 01/03/24 08:00 01/03/24 07:50 01/03/24 07:40 01/03/24 07:30 01/03/24 07:20 01/03/24 07:10 01/03/24 07:00 01/03/24 06:58 01/03/24 06:58 01/03/24 06:58 Nasal Cannula 2 01/03/24 06:50 01/03/24 06:47 01/03/24 06:40 01/03/24 06:30 01/03/24 06:20 01/03/24 06:10 01/03/24 06:00 01/03/24 05:50 01/03/24 05:40 01/03/24 05:30 01/03/24 05:20 01/03/24 05:10 01/03/24 05:02 01/03/24 05:02 01/03/24 05:00 01/03/24 04:50 01/03/24 04:40 01/03/24 04:30 01/03/24 04:20 01/03/24 04:10 01/03/24 04:00 01/03/24 04:00 01/03/24 03:50 01/03/24 03:40 01/03/24 03:30 01/03/24 03:20 01/03/24 03:10 01/03/24 03:00 01/03/24 02:50 01/03/24 02:40 01/03/24 02:30 01/03/24 02:20 01/03/24 02:16 01/03/24 02:11 01/03/24 02:00 01/03/24 02:00 01/03/24 01:50 01/03/24 01:40 01/03/24 01:30 01/03/24 01:20 01/03/24 01:10 01/03/24 01:00 01/03/24 01:00 01/03/24 00:50 01/03/24 00:40 01/03/24 00:30 01/03/24 00:20 01/03/24 00:10 01/03/24 00:02 01/03/24 00:02 01/03/24 00:00 01/03/24 00:00 01/02/24 23:50 01/02/24 23:40 01/02/24 23:30 01/02/24 23:20 01/02/24 23:10 01/02/24 23:00 01/02/24 23:00 PG Care Time/CCT Total # of Minutes Spent Total Time Spent with Patient: Total time spent is greater than 50% in coordination of care (as documented) at patient's floor/unit and/or counseling patient: Coding Level of Care Code 66617 SUB INP/OBS CARE 50MIN Diagnoses Acute ST elevation myocardial infarction (STEMI) of inferior wall I21.19
[2024-01-03] MEDS: SODIUM CHLORIDE 0.9% 500 ML IV SCH (15:30)
[2024-01-03] MEDS: LORazepam 0.5 MG in SYRINGE 0.25 ML IV ONE (20:40)
[2024-01-04] MEDS: LABETALOL HCL IV 5 MG/ML 20ML IV STA ×2 (02:44→04:43)
[2024-01-04] MEDS: LORazepam 0.25 MG in SYRINGE 0.125 ML IV PRN (04:13)
[2024-01-04 06:33] LABS: Basophils # (auto) 0.03 K/uL (0.00-0.20); Basophils % (auto) 0.3 %; Eosinophils # (auto) 0.05 K/uL (0.00-0.50); Eosinophils % (auto) 0.6 %; Hematocrit (blood only) 34.2 % (37.0-47.0); Hemoglobin 11.7 g/dl (12.0-16.0); Immature Granulocytes # (auto) 0.04 K/uL (0.01-0.20); Immature Granulocytes % (auto) 0.5 %; Lymphocytes % (auto) 10.3 %; Mean Corpuscular Hemoglobin 32.8 pg (25.0-34.0); Mean Corpuscular Hgb Conc 34.2 g/dL (32.0-36.0); Mean Corpuscular Volume 95.8 fL (80.0-100.0); Monocytes # (auto) 0.92 K/uL (0.11-0.59); Monocytes % (auto) 10.5 %; Neutrophils # (auto) 6.84 K/uL (1.40-6.50); Neutrophils % (auto) 77.8 %; Platelet Count 124 K/uL (130-400); RDW Coefficient of Variation 13.3 % (11.5-14.5); RDW Standard Deviation 47.1 fL (36.4-46.3); Red Blood Count 3.57 M/uL (4.20-5.40); White Blood Count 8.78 K/ul (4.8-10.8)
[2024-01-04 07:01] LABS: BUN Creatinine Ratio 12.8 (10-20); Est GFR (African American) 76.1 ml/min; Est GFR (Non-African American) 65.6 ml/min; Potassium 3.3 mmol/L (3.5-5.1)
--- NOTE | 2024-01-04 07:36 | Hospitalist Progress Note ---
Date of Service January 04, 2024 Assessment & Plan (1) Acute ST elevation myocardial infarction (STEMI) of inferior wall: (2) S/P cardiac catheterization: (3) Coronary artery disease: Plan: Danita Bull is a 78y/o F with PMHx of CAD, urinary incontinence, TIA [2019], dementia, hyperlipidemia, b/l carotid artery stenosis, GERD, ruptured AAA s/p endovascular repair [04/16/2022], osteoarthritis/RA and fibromyalgia who presented to [facility] following transfer from [facility] to undergo cardiac catheterization for tx of an acute inferior STEMI. 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 EKG performed by EMS revealed an inferior STEMI, and aspiring was provided en route to the hospital. She was reported to be at baseline yesterday. The chest pain has lingered since it began in the optical instrument inspector hours, and her pain level was recorded being ~8/10 upon arrival to the [facility] ED. Initial trop in [facility] ED was 47 @ 04:25, repeat trop @ 05:38 increased to 50. TNK and Brilinta initiated in [facility] ED. Labetalol also given in [facility] ED, as her SBP was in the 200s. SBP improved to the 150s following administration. Low-dose fentanyl was also given for pain. Patient did become bradycardic in the 30s, was ultimately given 1mg of atropine and started on a dopamine infusion. Patient ultimately transferred here to [facility] via [facility]. Patient underwent successful cardiac catheterization of mid RCA w/ single drug- eluding stent placement, performed by Dr. Thomas. He mentioned further evaluation/management of the mid circumflex artery, as 80% occlusion was noted during the cardiac catheterization procedure. Continue to f/u on Dr. Thomas' recommendation/plan for addressing the mid circumflex artery occlusion. Of note, 30-40% distal left main artery and 60% mid LAD artery occlusions noted during procedure as well. She is now off the dopamine drip s/p cardiac catheterization. HR currently holding steady in the 80s. Acute ST elevation myocardial infarction (STEMI) of inferior wall: Plan per cardiology: Post rescue PCI to mid RCA with BAILEY following thrombolytics Severe nonculprit [id number]% mid LCx, 60% mid LAD, 30% distal LM 2. ICMEF 35-40%, inferior/inferolateral wall motion abnormality 3. PADocclusive carotid artery disease, prior AAA post EVAR 4. Tobacco abuse Stable from a cardiac standpoint. No recurrent chest pain Hemodynamically and electrically stable No significant congestion on exam Ecchymosis but no evidence of significant right radial artery access site complications. Continue DAPT with aspirin, ticagrelor Lisinopril 10 mg daily Metoprolol 50 mg twice daily Continue current statin will add spironolactone today No need for LifeVest In the setting of mental status issues, acute LV dysfunction and coronary anatomy will defer possible staged PCI of circumflex to outpatient setting. (4) Hyperlipidemia: Plan: -Patient was not taking any cholesterol medications at home. -Was started on high-dose statin therapy per cardiac protocol. (5) History of dementia: Plan: -on memantine and donpezil -Monitor for any signs of delirium during admission (6) GERD (gastroesophageal reflux disease): Plan: -Continue pantoprazole Pt's , Jeremy, Cell Jeremy was visiting in the hospital yesterday (01/02) -I also updated him over the phone yesterday, he says that they were looking into rehab, and they were working with her PCP. He is interested for Danita to be placed to rehab at discharge from the hospital. CM aware and involved in DC plan. Code Status: Full Code PCP: Sreedhar Jackson MD Dispo: PCU Admission and Anticipated Discharge Date Admission Date: January 02, 2024 Subjective Pt seen in follow up of inferior STEMI, transferred from [facility], now s/p BAILEY to [facility] Currently laying in bed, sitter present as pt gets confused, has hx of dementia Pt is currently cooperative with me , cardiology also present at the bedside Pt currently denies any chest pain, palpitations, shortness of breath. Denies abd. pain, n/v Pt's updated yesterday - wishes for pt to go to rehab - CM involved Review of Systems Review of Systems: All systems reviewed & are unremarkable except as noted in Subjective Physical Exam Physical Exam: GENERAL APPEARANCE: drowsy frail F in NAD HEENT: NC, AT. MMM. EOMI, clear conjunctiva NECK: Supple HEART: Normal rate and regular rhythm, normal S1/S1, no m/r/g LUNGS: CTAB, moving air well. No crackles or wheezes are heard. ABDOMEN: Soft, nontender, nondistended with + bowel sounds EXTREMITIES: No LE edema, moves extremities, + ecchymoses on UEs NEUROLOGICAL: Drowsy but cooperative, speech fluent, but slow, no facial asymmetry. moving all 4 extremities. Skin: + ecchymosis from access, scattered purpuric lesions on chest, no obvious wounds or skin tears Results & Data Results & Data Vital Signs (Past 12 Hours) Vital Signs Temp Pulse Pulse Resp BP BP Pulse Ox 01/04/24 07:17 67 20 170/92 H 99 01/04/24 03:54 71 149/87 H 01/04/24 03:25 36.6 C 23 94 01/04/24 02:59 77 175/79 H 01/04/24 02:44 82 188/90 H 01/04/24 02:00 01/04/24 01:50 88 L 01/04/24 01:50 37.1 C 83 18 188/90 H 94 01/04/24 01:47 82 O2 Del Method O2 Flow Rate 01/04/24 07:17 Room Air 01/04/24 03:54 01/04/24 03:25 Nasal Cannula 2 01/04/24 02:59 01/04/24 02:44 01/04/24 02:00 Nasal Cannula 2 01/04/24 01:50 Room Air 01/04/24 01:50 Nasal Cannula 2 01/04/24 01:47 Laboratory Results 01/04/24 01/04/24 01/03/24 Range/Units 07:20 05:35 17:15 WBC 8.78 (4.8-10.8) K/ul RBC 3.57 L (4.20-5.40) M/uL Hgb 11.7 L (12.0-16.0) g/dl Hct 34.2 L (37.0-47.0) % MCV 95.8 (80.0-100.0) fL MCH 32.8 (25.0-34.0) pg MCHC 34.2 (32.0-36.0) g/dL RDW Std Deviation 47.1 H (36.4-46.3) fL RDW Coeff of Freddy 13.3 (11.5-14.5) % Plt Count 124 L (130-400) K/uL MPV 12.0 (9.4-12.4) fL Immature Gran % (Auto) 0.5 % Neut % (Auto) 77.8 % Lymph % (Auto) 10.3 % [place] % (Auto) 10.5 % Eos % (Auto) 0.6 % Baso % (Auto) 0.3 % Neut # (Auto) 6.84 H (1.40-6.50) K/uL Lymph # (Auto) 0.90 L (1.20-3.40) K/uL [place] # (Auto) 0.92 H (0.11-0.59) K/uL Eos # (Auto) 0.05 (0.00-0.50) K/uL Baso # (Auto) 0.03 (0.00-0.20) K/uL Immature Gran # (Auto) 0.04 (0.01-0.20) K/uL Sodium 140 (136-145) mmol/L Potassium 3.3 L (3.5-5.1) mmol/L Chloride 107 (98-107) mmol/L Carbon Dioxide 24 (21-32) mmol/L Anion Gap 9 (3-11) BUN 11 (6-23) mg/dl Creatinine 0.86 (0.6-1.2) mg/dl Est Cr Clr Drug Dosing 44.0 ml/min Est GFR ( Amer) 76.1 ml/min Est GFR (Non-Af Amer) 65.6 ml/min BUN/Creatinine Ratio 12.8 (10-20) Glucose 125 H (70-99(Fasting)) mg/dl POC Glucose 127 H 125 H (70-99) mg/dl Calcium 9.0 (8.6-10.3) mg/dl Troponin I High Sens (0-14) pg/ml 01/03/24 Range/Units 10:41 WBC (4.8-10.8) K/ul RBC (4.20-5.40) M/uL Hgb (12.0-16.0) g/dl Hct (37.0-47.0) % MCV (80.0-100.0) fL MCH (25.0-34.0) pg MCHC (32.0-36.0) g/dL RDW Std Deviation (36.4-46.3) fL RDW Coeff of Freddy (11.5-14.5) % Plt Count (130-400) K/uL MPV (9.4-12.4) fL Immature Gran % (Auto) % Neut % (Auto) % Lymph % (Auto) % [place] % (Auto) % Eos % (Auto) % Baso % (Auto) % Neut # (Auto) (1.40-6.50) K/uL Lymph # (Auto) (1.20-3.40) K/uL [place] # (Auto) (0.11-0.59) K/uL Eos # (Auto) (0.00-0.50) K/uL Baso # (Auto) (0.00-0.20) K/uL Immature Gran # (Auto) (0.01-0.20) K/uL Sodium (136-145) mmol/L Potassium (3.5-5.1) mmol/L Chloride (98-107) mmol/L Carbon Dioxide (21-32) mmol/L Anion Gap (3-11) BUN (6-23) mg/dl Creatinine (0.6-1.2) mg/dl Est Cr Clr Drug Dosing ml/min Est GFR ( Amer) ml/min Est GFR (Non-Af Amer) ml/min BUN/Creatinine Ratio (10-20) Glucose (70-99(Fasting)) mg/dl POC Glucose (70-99) mg/dl Calcium (8.6-10.3) mg/dl Troponin I High Sens 03785.0 H* D (0-14) pg/ml Medications Administered Current Inpatient Medications Acetaminophen (Acetaminophen 325 Mg Tab) 650 mg PO Q4H PRN PRN Reason: MILD Pain (Scale 1,2,3) Stop: 02/01/24 09:43 Aspirin (Aspirin 81 Mg Ectab) 81 mg PO [facility] Stop: 02/02/24 08:59 Last Admin: 01/03/24 08:30 Dose: 81 mg Atorvastatin Calcium (Atorvastatin 40 Mg Tab) 40 mg PO [facility] Stop: 02/02/24 08:59 Last Admin: 01/03/24 08:30 Dose: 40 mg Folic Acid (Folic Acid 1 Mg Tab) 1 mg PO [facility] Stop: 02/02/24 08:59 Last Admin: 01/03/24 08:30 Dose: 1 mg Lorazepam 0.25 mg/ Syringe 0.25 mls @ 2 mls/min IV Q4H PRN PRN Reason: Anxiety/Agitation Stop: 02/03/24 03:24 Last Admin: 01/04/24 04:13 Dose: 2 mls/min Lisinopril (Lisinopril 10 Mg Tab) [facility] Stop: 02/02/24 08:59 Last Admin: 01/03/24 09:10 Dose: 10 mg Metoprolol Tartrate (Metoprolol Tartrate 25 Mg Tab) 25 mg PO Q8H [facility] Stop: 02/01/24 13:19 Last Admin: 01/04/24 05:07 Dose: 25 mg Miscellaneous (Remove Nicoderm Patch) 1 each N/A DAILY@0859 [facility] Stop: 02/02/24 08:58 Last Admin: 01/03/24 08:29 Dose: 1 each Nicotine (Nicotine 14 Mg/24 Hr Patch) 1 patch TD [facility] Stop: 02/01/24 18:14 Last Admin: 01/03/24 08:30 Dose: 1 patch Ondansetron HCl (Ondansetron Inj 2 Mg/Ml 2 Ml Vial) 4 mg IV Q6H PRN PRN Reason: Nausea And Vomiting Stop: 02/01/24 09:43 Pantoprazole Sodium (Pantoprazole 40 Mg Tab) 40 [facility] Stop: 02/02/24 08:59 Last Admin: 01/03/24 08:30 Dose: 40 mg Potassium Chloride (Potassium Chloride Crtab 20 Meq Tabcr) 40 meq PO NOW ST[facility] Stop: 01/04/24 07:35 Thiamine HCl (Thiamine Hcl 100 Mg Tab) 100 [facility] Stop: 02/02/24 08:59 Last Admin: 01/03/24 08:30 Dose: 100 mg Ticagrelor (Ticagrelor 90 Mg Tab) 90 mg PO BID [facility] Stop: 02/01/24 20:59 Last Admin: 01/03/24 19:55 Dose: 90 mg (3) Coronary artery disease Associated angina: unspecified whether angina present Coronary Disease- Associated Artery/Lesion type: unspecified vessel or lesion type [place] vs. transplanted heart: [place] heart Qualified Code(s): I25.10 - Atherosclerotic heart disease of [place] coronary artery without angina pectoris (4) Hyperlipidemia Hyperlipidemia type: unspecified Qualified Code(s): E78.5 - Hyperlipidemia, unspecified (6) GERD (gastroesophageal reflux disease) Esophagitis presence: without esophagitis Qualified Code(s): K21.9 - Gastro- esophageal reflux disease without esophagitis
[2024-01-04 08:11] LABS: Magnesium 1.5 mg/dl (1.7-2.4)
[2024-01-04] MEDS: POTASSIUM CHLORIDE CRTAB 20 MEQ TABCR PO STA (10:24)
--- NOTE | 2024-01-04 12:20 | Electrocardiogram Report ---
Test Reason : Blood Pressure : / mmHG Vent. Rate : 079 BPM Atrial Rate : 079 BPM P-R Int : 122 ms QRS Dur : 122 ms QT Int : 412 ms P-R-T Axes : 071 -69 -49 degrees QTc Int : 472 ms Normal sinus rhythm Right bundle branch block Left anterior fascicular block Bifascicular block T wave abnormality, consider inferior ischemia Abnormal ECG When compared with ECG of 02-JAN-2024 09:53, No significant change was found Confirmed by Sonu Parham ([id number]) on 01/04/2024 12:19:40 PM Referred By: Luan Thomas Confirmed By:Luan Parham
[2024-01-04] MEDS: MAGNESIUM OXIDE 400 MG TAB PO SCH (12:25)
[2024-01-04] MEDS: MAGNESIUM SULFATE / D5W 1 GM/100 ML BAG IV ONE (12:25)
[2024-01-04] MEDS: SPIRONOLACTONE 12.5 MG TAB PO SCH (14:16)
--- NOTE | 2024-01-04 16:33 | Cardiology Progress Note ---
Date of Service January 04, 2024 Assessment & Plan (1) Acute ST elevation myocardial infarction (STEMI) of inferior wall: Plan: Post rescue PCI to mid RCA with BAILEY following thrombolytics Severe nonculprit [id number]% mid LCx, 60% mid LAD, 30% distal LM 2. ICMEF 35-40%, inferior/inferolateral wall motion abnormality 3. Delirium/dementiapossible alcohol withdrawal 4. Right forearm hematomastable 5. Anemia 6. Dyslipidemia 7. PADocclusive carotid artery disease, prior AAA post EVAR 8. Tobacco abuse Stable from a cardiac standpoint. Confusion persists - may be close to baseline No recurrent chest pain Electrically stable No significant congestion on exam Ecchymosis but no evidence of significant right radial artery access site complications. Continue DAPT with aspirin, ticagrelor Continue Lisinopril 10 mg today. Continue metoprolol 50mg BID --> transition to Toprol XL on discharge Continue current statin Add spironolactone 12.5 mg today No need for LifeVest In the setting of mental status issues, acute LV dysfunction and coronary anatomy will defer staged PCI of circumflex From a cardiac standpoint okay with SNF/rehab when stable from medical standpoint. Appreciate [facility] medicine care. Admission and Anticipated Discharge Date Admission Date: January 02, 2024 Subjective Currently laying in bed, pleasant, cooperative. Confusion persists, sitter present Denies any chest pain, palpitations, shortness of breath. Telemetry reviewed -- no events Review of Systems Review of Systems: All systems reviewed & are unremarkable except as noted in HPI & below Physical Exam Physical Exam: General: Resting comfortably HEENT: Sclerae anicteric Lungs: Clear to auscultation anteriorly Cardiac: Regular rate and rhythm, no murmurs. Vascular: Diffuse ecchymosis extending from hand to above elbow. No palpable hematoma. Radial pulse intact Abdomen: Soft, nontender Extremities: Well perfused, no peripheral edema Psych: Confused Results & Data Vital Signs (Past 12 Hours) Vital Signs Temp Pulse Resp BP Pulse Ox O2 Del Method O2 Del Method 01/04/24 15:09 97.7 F 79 20 122/61 95 Nasal Cannula 01/04/24 12:28 95 01/04/24 09:00 Nasal Cannula 01/04/24 07:17 67 20 170/92 H 99 Nasal Cannula O2 Flow Rate O2 Flow Rate 05/12/24 15:09 2 01/04/24 12:28 01/04/24 09:00 2 01/04/24 07:17 2 PG Care Time/CCT Total # of Minutes Spent Total Time Spent with Patient: Total time spent is greater than 50% in coordination of care (as documented) at patient's floor/unit and/or counseling patient: Coding Level of Care Code 38001 SUB INP/OBS CARE 2/35MIN Diagnoses Acute ST elevation myocardial infarction (STEMI) of inferior wall I21.19
[2024-01-04] MEDS: METOPROLOL TARTRATE 50 MG TAB PO SCH (20:03)
[2024-01-05 06:01] LABS: Hematocrit (blood only) 33.2 % (37.0-47.0); Hemoglobin 11.1 g/dl (12.0-16.0); Mean Corpuscular Hemoglobin 31.9 pg (25.0-34.0); Mean Corpuscular Hgb Conc 33.4 g/dL (32.0-36.0); Mean Corpuscular Volume 95.4 fL (80.0-100.0); Mean Platelet Volume 12.1 fL (9.4-12.4); Platelet Count 131 K/uL (130-400); RDW Coefficient of Variation 13.3 % (11.5-14.5); RDW Standard Deviation 46.3 fL (36.4-46.3); Red Blood Count 3.48 M/uL (4.20-5.40); White Blood Count 9.14 K/ul (4.8-10.8)
[2024-01-05 06:45] LABS: BUN Creatinine Ratio 14.9 (10-20); Calcium 8.9 mg/dl (8.6-10.3); Creatinine Clr Calc Pharmacy 40.3 ml/min; Est GFR (African American) 68.3 ml/min; Est GFR (Non-African American) 58.9 ml/min; Magnesium 1.9 mg/dl (1.7-2.4); Phosphorus 2.4 mg/dl (2.5-4.9); Potassium 3.9 mmol/L (3.5-5.1)
[2024-01-05] MEDS: ACETAMINOPHEN 325 MG TAB PO PRN (07:53)
--- NOTE | 2024-01-05 11:40 | Hospitalist Progress Note ---
Date of Service January 05, 2024 Assessment & Plan (1) Acute ST elevation myocardial infarction (STEMI) of inferior wall: (2) S/P cardiac catheterization: (3) Coronary artery disease: Plan: Danita Bull is a 78y/o F with PMHx of CAD, urinary incontinence, TIA [2019], dementia, hyperlipidemia, b/l carotid artery stenosis, GERD, ruptured AAA s/p endovascular repair [04/16/2022], osteoarthritis/RA and fibromyalgia who presented to [facility] following transfer from [facility] to undergo cardiac catheterization for tx of an acute inferior STEMI. 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 EKG performed by EMS revealed an inferior STEMI, and aspiring was provided en route to the hospital. She was reported to be at baseline yesterday. The chest pain has lingered since it began in the pole frame construction worker hours, and her pain level was recorded being ~8/10 upon arrival to the [facility] ED. Initial trop in [facility] ED was 47 @ 04:25, repeat trop @ 05:38 increased to 50. TNK and Brilinta initiated in [facility] ED. Labetalol also given in [facility] ED, as her SBP was in the 200s. SBP improved to the 150s following administration. Low-dose fentanyl was also given for pain. Patient did become bradycardic in the 30s, was ultimately given 1mg of atropine and started on a dopamine infusion. Patient ultimately transferred here to [facility] via [facility]. Patient underwent successful cardiac catheterization of mid RCA w/ single drug- eluding stent placement, performed by Dr. Thomas. He mentioned further evaluation/management of the mid circumflex artery, as 80% occlusion was noted during the cardiac catheterization procedure. Continue to f/u on Dr. Thomas' recommendation/plan for addressing the mid circumflex artery occlusion. Of note, 30-40% distal left main artery and 60% mid LAD artery occlusions noted during procedure as well. She is now off the dopamine drip s/p cardiac catheterization. HR currently holding steady in the 80s. Acute ST elevation myocardial infarction (STEMI) of inferior wall: Plan per cardiology: Post rescue PCI to mid RCA with BAILEY following thrombolytics Severe nonculprit [id number]% mid LCx, 60% mid LAD, 30% distal LM 2. ICMEF 35-40%, inferior/inferolateral wall motion abnormality 3. PADocclusive carotid artery disease, prior AAA post EVAR 4. Tobacco abuse Stable from a cardiac standpoint. No recurrent chest pain Hemodynamically and electrically stable No significant congestion on exam Ecchymosis but no evidence of significant right radial artery access site complications. Continue DAPT with aspirin, ticagrelor Lisinopril 10 mg daily Metoprolol succinate 50 mg twice daily Continue current statin spironolactone 12.5 mg daily No need for LifeVest In the setting of mental status issues, acute LV dysfunction and coronary anatomy will defer possible staged PCI of circumflex to outpatient setting. (4) Hyperlipidemia: Plan: -Patient was not taking any cholesterol medications at home. -Was started on high-dose statin therapy per cardiac protocol. (5) History of dementia: Plan: -on memantine and donpezil -Monitor for any signs of delirium during admission (6) GERD (gastroesophageal reflux disease): Plan: -Continue pantoprazole Pt's , Jeremy, Cell Pt's is interested for Danita to be placed to rehab at discharge from the hospital. CM aware and involved in DC plan. Code Status: Full Code PCP: Sreedhar Jackson MD Dispo: PCU Admission and Anticipated Discharge Date Admission Date: January 02, 2024 Subjective Pt seen in follow up of inferior STEMI, transferred from [facility], now s/p BAILEY to [facility] Currently laying in bed, sitter present as pt gets confused, has hx of dementia Pt is currently cooperative with me , but appears somewhat drowsy Pt currently denies any chest pain, palpitations, shortness of breath. Denies abd. pain, n/v Review of Systems Review of Systems: All systems reviewed & are unremarkable except as noted in Subjective Physical Exam Physical Exam: GENERAL APPEARANCE: drowsy frail F in NAD HEENT: NC, AT. MMM. EOMI, clear conjunctiva NECK: Supple HEART: Normal rate and regular rhythm, normal S1/S1, no m/r/g LUNGS: CTAB, moving air well. No crackles or wheezes are heard. ABDOMEN: Soft, nontender, nondistended with + bowel sounds EXTREMITIES: No LE edema, moves extremities, + ecchymoses on UEs NEUROLOGICAL: Drowsy but cooperative, speech fluent, but slow, no facial asymmetry. moving all 4 extremities. Skin: + ecchymosis from access, scattered purpuric lesions on chest, no obvious wounds or skin tears Results & Data Results & Data Vital Signs (Past 12 Hours) Vital Signs Temp Pulse Resp BP Pulse Ox O2 Del Method O2 Flow Rate 01/05/24 11:15 36.8 C 59 L 18 137/69 95 Nasal Cannula 2 01/05/24 08:35 Nasal Cannula 2 01/05/24 07:00 36.9 C 77 18 169/110 H 95 Nasal Cannula 2 Laboratory Results 01/05/24 Range/Units 05:23 WBC 9.14 (4.8-10.8) K/ul RBC 3.48 L (4.20-5.40) M/uL Hgb 11.1 L (12.0-16.0) g/dl Hct 33.2 L (37.0-47.0) % MCV 95.4 (80.0-100.0) fL MCH 31.9 (25.0-34.0) pg MCHC 33.4 (32.0-36.0) g/dL RDW Std Deviation 46.3 (36.4-46.3) fL RDW Coeff of Freddy 13.3 (11.5-14.5) % Plt Count 131 (130-400) K/uL MPV 12.1 (9.4-12.4) fL Sodium 139 (136-145) mmol/L Potassium 3.9 (3.5-5.1) mmol/L Chloride 108 H (98-107) mmol/L Carbon Dioxide 24 (21-32) mmol/L Anion Gap 7 (3-11) BUN 14 (6-23) mg/dl Creatinine 0.94 (0.6-1.2) mg/dl Est Cr Clr Drug Dosing 40.3 ml/min Est GFR ( Amer) 68.3 ml/min Est GFR (Non-Af Amer) 58.9 ml/min BUN/Creatinine Ratio 14.9 (10-20) Glucose 124 H (70-99(Fasting)) mg/dl Calcium 8.9 (8.6-10.3) mg/dl Phosphorus 2.4 L (2.5-4.9) mg/dl Magnesium 1.9 (1.7-2.4) mg/dl Medications Administered Current Inpatient Medications Acetaminophen (Acetaminophen 325 Mg Tab) 650 mg PO Q4H PRN PRN Reason: MILD Pain (Scale 1,2,3) Stop: 02/01/24 09:43 Last Admin: 01/05/24 07:53 Dose: 650 mg Aspirin (Aspirin 81 Mg Ectab) 81 mg PO [facility] Stop: 02/02/24 08:59 Last Admin: 01/05/24 07:54 Dose: 81 mg Atorvastatin Calcium (Atorvastatin 40 Mg Tab) 40 mg PO [facility] Stop: 02/02/24 08:59 Last Admin: 01/05/24 07:56 Dose: 40 mg Folic Acid (Folic Acid 1 Mg Tab) 1 mg PO [facility] Stop: 02/02/24 08:59 Last Admin: 01/05/24 07:57 Dose: 1 mg Lorazepam 0.25 mg/ Syringe 0.25 mls @ 2 mls/min IV Q4H PRN PRN Reason: Anxiety/Agitation Stop: 02/03/24 03:24 Last Admin: 01/04/24 04:13 Dose: 2 mls/min Lisinopril (Lisinopril 10 Mg Tab) 10 mg PO [facility] Stop: 02/02/24 08:59 Last Admin: 01/05/24 07:56 Dose: 10 mg Magnesium Oxide (Magnesium Oxide 400 Mg Tab) 400 mg PO BID [facility] Stop: 02/03/24 10:59 Last Admin: 01/05/24 07:56 Dose: 400 mg Metoprolol Tartrate (Metoprolol Tartrate 50 Mg Tab) 50 mg PO BID [facility] Stop: 02/03/24 20:59 Last Admin: 01/05/24 07:56 Dose: 50 mg Miscellaneous (Remove Nicoderm Patch) 1 each N/A DAILY@0859 [facility] Stop: 02/02/24 08:58 Last Admin: 01/05/24 07:54 Dose: 1 each Nicotine (Nicotine 14 Mg/24 Hr Patch) 1 patch TD [facility] Stop: 02/01/24 18:14 Last Admin: 01/05/24 07:55 Dose: 1 patch Ondansetron HCl (Ondansetron Inj 2 Mg/Ml 2 Ml Vial) 4 mg IV Q6H PRN PRN Reason: Nausea And Vomiting Stop: 02/01/24 09:43 Pantoprazole Sodium (Pantoprazole 40 Mg Tab) 40 mg PO QAM [facility] Stop: 02/02/24 08:59 Last Admin: 01/05/24 07:57 Dose: 40 mg Spironolactone (Spironolactone 12.5 Mg Tab) 12.5 mg PO DAILY [facility] Stop: 02/03/24 12:29 Last Admin: 01/05/24 07:57 Dose: 12.5 mg Thiamine HCl (Thiamine Hcl 100 Mg Tab) 100 mg PO QAM [facility] Stop: 02/02/24 08:59 Last Admin: 01/05/24 07:57 Dose: 100 mg Ticagrelor (Ticagrelor 90 Mg Tab) 90 mg PO BID [facility] Stop: 02/01/24 20:59 Last Admin: 01/05/24 07:57 Dose: 90 mg (3) Coronary artery disease Associated angina: unspecified whether angina present Coronary Disease- Associated Artery/Lesion type: unspecified vessel or lesion type [place] vs. transplanted heart: [place] heart Qualified Code(s): I25.10 - Atherosclerotic heart disease of [place] coronary artery without angina pectoris (4) Hyperlipidemia Hyperlipidemia type: unspecified Qualified Code(s): E78.5 - Hyperlipidemia, unspecified (6) GERD (gastroesophageal reflux disease) Esophagitis presence: without esophagitis Qualified Code(s): K21.9 - Gastro- esophageal reflux disease without esophagitis
--- NOTE | 2024-01-05 12:33 | Cardiology Progress Note ---
Date of Service January 05, 2024 Assessment & Plan (1) Acute ST elevation myocardial infarction (STEMI) of inferior wall: Plan: Post rescue PCI to mid RCA with BAILEY following thrombolytics Severe nonculprit [id number]% mid LCx, 60% mid LAD, 30% distal LM 2. ICMEF 35-40%, inferior/inferolateral wall motion abnormality 3. Delirium/dementiapossible alcohol withdrawal 4. Right forearm hematomastable 5. Anemia 6. Dyslipidemia 7. PADocclusive carotid artery disease, prior AAA post EVAR 8. Tobacco abuse Stable from a cardiac standpoint. Confusion persists - may be close to baseline No recurrent chest pain No significant congestion on exam Blood pressure improved Continue DAPT with aspirin, ticagrelor Continue current Lisinopril, spironolactone, toprol xl. Continue current statin No need for LifeVest In the setting of mental status issues, acute LV dysfunction and coronary anatomy will defer staged PCI of circumflex From a cardiac standpoint okay with SNF/rehab when stable from medical standpoint. Appreciate hospital medicine care. Admission and Anticipated Discharge Date Admission Date: January 02, 2024 Subjective Currently laying in bed eating breakfast, pleasant, cooperative. Confusion persists, sitter present Denies any chest pain, palpitations, shortness of breath. Telemetry reviewed -- no events Review of Systems Review of Systems: All systems reviewed & are unremarkable except as noted in HPI & below Physical Exam Physical Exam: General: Resting comfortably HEENT: Sclerae anicteric Lungs: Clear to auscultation anteriorly Cardiac: Regular rate and rhythm, no murmurs. Vascular: Diffuse ecchymosis extending from hand to above elbow. No palpable hematoma. Radial pulse intact Abdomen: Soft, nontender Extremities: Well perfused, no peripheral edema Psych: Confused Results & Data Vital Signs (Past 12 Hours) Vital Signs Temp Pulse Resp BP Pulse Ox O2 Del Method O2 Flow Rate 01/05/24 11:15 98.2 F 59 L 18 137/69 95 Nasal Cannula 2 01/05/24 08:35 Nasal Cannula 2 01/05/24 07:00 98.4 F 77 18 169/110 H 95 Nasal Cannula 2 PG Care Time/CCT Total # of Minutes Spent Total Time Spent with Patient: Total time spent is greater than 50% in coordination of care (as documented) at patient's floor/unit and/or counseling patient: Coding Level of Care Code 17366 SUB INP/OBS CARE MIN Diagnoses Acute ST elevation myocardial infarction (STEMI) of inferior wall I21.19
[2024-01-05] MEDS: METOPROLOL SUCC 50MG EXT REL TAB PO SCH (20:20)
[2024-01-06 07:40] LABS: Hematocrit (blood only) 33.4 % (37.0-47.0); Hemoglobin 11.3 g/dl (12.0-16.0); Mean Corpuscular Hemoglobin 32.3 pg (25.0-34.0); Mean Corpuscular Hgb Conc 33.8 g/dL (32.0-36.0); Mean Corpuscular Volume 95.4 fL (80.0-100.0); Mean Platelet Volume 12.2 fL (9.4-12.4); Platelet Count 141 K/uL (130-400); RDW Coefficient of Variation 13.3 % (11.5-14.5); RDW Standard Deviation 46.4 fL (36.4-46.3); White Blood Count 8.24 K/ul (4.8-10.8)
[2024-01-06 09:41] LABS: Calcium 9.5 mg/dl (8.6-10.3); Magnesium 1.8 mg/dl (1.7-2.4); Potassium 3.9 mmol/L (3.5-5.1)
[2024-01-06 09:46] LABS: BUN Creatinine Ratio 15.2 (10-20); Creatinine Clr Calc Pharmacy 38.2 ml/min; Est GFR (African American) 64.2 ml/min; Est GFR (Non-African American) 55.4 ml/min; Phosphorus 2.8 mg/dl (2.5-4.9)
--- NOTE | 2024-01-06 11:47 | Hospitalist Progress Note ---
Date of Service January 06, 2024 Assessment & Plan (1) Acute ST elevation myocardial infarction (STEMI) of inferior wall: (2) S/P cardiac catheterization: (3) Coronary artery disease: Plan: Danita Bull is a 78y/o F with PMHx of CAD, urinary incontinence, TIA [2019], dementia, hyperlipidemia, b/l carotid artery stenosis, GERD, ruptured AAA s/p endovascular repair [04/16/2022], osteoarthritis/RA and fibromyalgia who presented to [facility] following transfer from [facility] to undergo cardiac catheterization for tx of an acute inferior STEMI. 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 EKG performed by EMS revealed an inferior STEMI, and aspiring was provided en route to the hospital. She was reported to be at baseline yesterday. The chest pain has lingered since it began in the early years teacher hours, and her pain level was recorded being ~8/10 upon arrival to the [facility] ED. Initial trop in [facility] ED was 47 @ 04:25, repeat trop @ 05:38 increased to 50. TNK and Brilinta initiated in [facility] ED. Labetalol also given in [facility] ED, as her SBP was in the 200s. SBP improved to the 150s following administration. Low-dose fentanyl was also given for pain. Patient did become bradycardic in the 30s, was ultimately given 1mg of atropine and started on a dopamine infusion. Patient ultimately transferred here to [facility] via [facility]. Patient underwent successful cardiac catheterization of mid RCA w/ single drug- eluding stent placement, performed by Dr. Thomas. He mentioned further evaluation/management of the mid circumflex artery, as 80% occlusion was noted during the cardiac catheterization procedure. Continue to f/u on Dr. Thomas' recommendation/plan for addressing the mid circumflex artery occlusion. Of note, 30-40% distal left main artery and 60% mid LAD artery occlusions noted during procedure as well. She is now off the dopamine drip s/p cardiac catheterization. HR currently holding steady in the 80s. Acute ST elevation myocardial infarction (STEMI) of inferior wall: Plan per cardiology: Post rescue PCI to mid RCA with BAILEY following thrombolytics Severe nonculprit [id number]% mid LCx, 60% mid LAD, 30% distal LM 2. ICMEF 35-40%, inferior/inferolateral wall motion abnormality 3. PADocclusive carotid artery disease, prior AAA post EVAR 4. Tobacco abuse Stable from a cardiac standpoint. No recurrent chest pain Hemodynamically and electrically stable No significant congestion on exam Ecchymosis but no evidence of significant right radial artery access site complications. Continue DAPT with aspirin, ticagrelor Lisinopril 10 mg daily Metoprolol succinate 50 mg twice daily Continue current statin spironolactone 12.5 mg daily No need for LifeVest In the setting of mental status issues, acute LV dysfunction and coronary anatomy will defer possible staged PCI of circumflex to outpatient setting. (4) Hyperlipidemia: Plan: -Patient was not taking any cholesterol medications at home. -Was started on high-dose statin therapy per cardiac protocol. (5) History of dementia: Plan: -on memantine and donpezil -Monitor for any signs of delirium during admission (6) GERD (gastroesophageal reflux disease): Plan: -Continue pantoprazole Pt's , Jeremy, Cell Pt's is interested for Danita to be placed to rehab at discharge from the hospital. CM aware and involved in DC plan. Plan to DC to [facility] on . Code Status: Full Code PCP: Sreedhar Jackson MD Dispo: PCU Admission and Anticipated Discharge Date Admission Date: January 02, 2024 Subjective Pt seen in follow up of inferior STEMI, transferred from [facility], now s/p BAILEY to [facility] Currently laying in bed, sitter present as pt gets confused, has hx of dementia Pt is currently cooperative with me , awake, seen ambulating to the bathroom Pt currently denies any chest pain, palpitations, shortness of breath. Developed loose stool - per sitter pt has been eating [employer] in the hospital - ? reason. will cont. to monitor. Will also start probiotic. CM involved in DC - plan to DC to [facility] on Review of Systems Review of Systems: All systems reviewed & are unremarkable except as noted in Subjective Physical Exam Physical Exam: GENERAL APPEARANCE: drowsy frail F in NAD HEENT: NC, AT. MMM. EOMI, clear conjunctiva NECK: Supple HEART: Normal rate and regular rhythm, normal S1/S1, no m/r/g LUNGS: CTAB, moving air well. No crackles or wheezes are heard. ABDOMEN: Soft, nontender, nondistended with + bowel sounds EXTREMITIES: No LE edema, moves extremities, + ecchymoses on UEs NEUROLOGICAL: Awake, alert, speech fluent, no facial asymmetry. moving all 4 extremities. Skin: + ecchymosis from access, scattered purpuric lesions on chest, no obvious wounds or skin tears Results & Data Results & Data Vital Signs (Past 12 Hours) Vital Signs Temp Pulse Resp BP Pulse Ox O2 Del Method 01/06/24 11:09 37.0 C 69 18 153/79 H 94 Room Air 01/06/24 06:59 37.1 C 75 18 153/90 H 93 Room Air Laboratory Results 01/06/24 Range/Units 07:17 WBC 8.24 (4.8-10.8) K/ul RBC 3.50 L (4.20-5.40) M/uL Hgb 11.3 L (12.0-16.0) g/dl Hct 33.4 L (37.0-47.0) % MCV 95.4 (80.0-100.0) fL MCH 32.3 (25.0-34.0) pg MCHC 33.8 (32.0-36.0) g/dL RDW Std Deviation 46.4 H (36.4-46.3) fL RDW Coeff of Freddy 13.3 (11.5-14.5) % Plt Count 141 (130-400) K/uL MPV 12.2 (9.4-12.4) fL Sodium 140 (136-145) mmol/L Potassium 3.9 (3.5-5.1) mmol/L Chloride 107 (98-107) mmol/L Carbon Dioxide 26 (21-32) mmol/L Anion Gap 7 (3-11) BUN 15 (6-23) mg/dl Creatinine 0.99 (0.6-1.2) mg/dl Est Cr Clr Drug Dosing 38.2 ml/min Est GFR ( Amer) 64.2 ml/min Est GFR (Non-Af Amer) 55.4 ml/min BUN/Creatinine Ratio 15.2 (10-20) Glucose 129 H (70-99(Fasting)) mg/dl Calcium 9.5 (8.6-10.3) mg/dl Phosphorus 2.8 (2.5-4.9) mg/dl Magnesium 1.8 (1.7-2.4) mg/dl Medications Administered Current Inpatient Medications Acetaminophen (Acetaminophen 325 Mg Tab) 650 mg PO Q4H PRN PRN Reason: MILD Pain (Scale 1,2,3) Stop: 02/01/24 09:43 Last Admin: 01/05/24 07:53 Dose: 650 mg Aspirin (Aspirin 81 Mg Ectab) 81 mg PO [facility] Stop: 02/02/24 08:59 Last Admin: 01/06/24 09:15 Dose: 81 mg Atorvastatin Calcium (Atorvastatin 40 Mg Tab) 40 mg PO [facility] Stop: 02/02/24 08:59 Last Admin: 01/06/24 09:15 Dose: 40 mg Folic Acid (Folic Acid 1 Mg Tab) 1 mg PO [facility] Stop: 02/02/24 08:59 Last Admin: 01/06/24 09:14 Dose: 1 mg Lorazepam 0.25 mg/ Syringe 0.25 mls @ 2 mls/min IV Q4H PRN PRN Reason: Anxiety/Agitation Stop: 02/03/24 03:24 Last Admin: 01/04/24 04:13 Dose: 2 mls/min Lactobacillus Acidophilus (Advanced Probiotic 625 Mg Capsule) 1,250 mg PO DAILY [facility] Stop: 02/05/24 11:59 Last Admin: 01/06/24 12:20 Dose: 1,250 mg Lisinopril (Lisinopril 10 Mg Tab) 10 mg PO [facility] Stop: 02/02/24 08:59 Last Admin: 01/06/24 09:14 Dose: 10 mg Magnesium Oxide (Magnesium Oxide 400 Mg Tab) 400 mg PO BID [facility] Stop: 02/03/24 10:59 Last Admin: 01/06/24 09:15 Dose: 400 mg Metoprolol Succinate (Metoprolol Succ 50mg Ext Rel Tab) 50 mg PO BID [facility] Stop: 02/04/24 20:59 Last Admin: 01/06/24 09:15 Dose: 50 mg Miscellaneous (Remove Nicoderm Patch) 1 each N/A DAILY@0859 [facility] Stop: 02/02/24 08:58 Last Admin: 01/06/24 09:15 Dose: 1 each Nicotine (Nicotine 14 Mg/24 Hr Patch) 1 patch TD [facility] Stop: 02/01/24 18:14 Last Admin: 01/06/24 09:15 Dose: 1 patch Ondansetron HCl (Ondansetron Inj 2 Mg/Ml 2 Ml Vial) 4 mg IV Q6H PRN PRN Reason: Nausea And Vomiting Stop: 02/01/24 09:43 Pantoprazole Sodium (Pantoprazole 40 Mg Tab) [facility] [place] [facility] Stop: 02/02/24 08:59 Last Admin: 01/06/24 09:15 Dose: 40 mg Spironolactone (Spironolactone 12.5 Mg Tab) 12.5 mg PO DAILY [facility] Stop: 02/03/24 12:29 Last Admin: 01/06/24 09:15 Dose: 12.5 mg Thiamine HCl (Thiamine Hcl 100 Mg Tab) 100 [facility] [place] Stop: 02/02/24 08:59 Last Admin: 01/06/24 09:15 Dose: 100 mg Ticagrelor (Ticagrelor 90 Mg Tab) 90 mg PO BID [facility] Stop: 02/01/24 20:59 Last Admin: 01/06/24 09:14 Dose: 90 mg (3) Coronary artery disease Associated angina: unspecified whether angina present Coronary Disease- Associated Artery/Lesion type: unspecified vessel or lesion type [place] vs. transplanted heart: [place] heart Qualified Code(s): I25.10 - Atherosclerotic heart disease of [place] coronary artery without angina pectoris (4) Hyperlipidemia Hyperlipidemia type: unspecified Qualified Code(s): E78.5 - Hyperlipidemia, unspecified (6) GERD (gastroesophageal reflux disease) Esophagitis presence: without esophagitis Qualified Code(s): K21.9 - Gastro- esophageal reflux disease without esophagitis
[2024-01-06] MEDS: ADVANCED PROBIOTIC 625 MG CAPSULE PO SCH (12:20)
[2024-01-07] MEDS: ONDANSETRON INJ 2 MG/ML 2 ML VIAL IV PRN (06:45)
[2024-01-07 07:08] LABS: Hematocrit (blood only) 35.2 % (37.0-47.0); Hemoglobin 11.6 g/dl (12.0-16.0); Mean Corpuscular Hemoglobin 31.9 pg (25.0-34.0); Mean Corpuscular Volume 96.7 fL (80.0-100.0); Mean Platelet Volume 12.1 fL (9.4-12.4); Platelet Count 157 K/uL (130-400); RDW Coefficient of Variation 13.4 % (11.5-14.5); RDW Standard Deviation 48.5 fL (36.4-46.3); Red Blood Count 3.64 M/uL (4.20-5.40); White Blood Count 7.27 K/ul (4.8-10.8)
[2024-01-07 07:54] LABS: Calcium 9.4 mg/dl (8.6-10.3); Magnesium 1.9 mg/dl (1.7-2.4); Potassium 4.1 mmol/L (3.5-5.1)
[2024-01-07 08:14] LABS: Creatinine Clr Calc Pharmacy 35.4 ml/min; Est GFR (African American) 58.4 ml/min; Est GFR (Non-African American) 50.4 ml/min
[2024-01-07 08:20] LABS: BUN Creatinine Ratio 15.9 (10-20); Phosphorus 3.4 mg/dl (2.5-4.9)
--- NOTE | 2024-01-07 18:46 | Hospitalist Progress Note ---
Date of Service January 07, 2024 Assessment & Plan (1) Acute ST elevation myocardial infarction (STEMI) of inferior wall: (2) S/P cardiac catheterization: (3) Coronary artery disease: Plan: per previous hospitalist notes with addendum: Danita Bull is a 78y/o F with PMHx of CAD, urinary incontinence, TIA [2019], dementia, hyperlipidemia, b/l carotid artery stenosis, GERD, ruptured AAA s/p endovascular repair [04/16/2022], osteoarthritis/RA and fibromyalgia who presented to [facility] following transfer from [facility] to undergo cardiac catheterization for tx of an acute inferior STEMI. 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 EKG performed by EMS revealed an inferior STEMI, and aspiring was provided en route to the hospital. She was reported to be at baseline yesterday. The chest pain has lingered since it began in the checker/stocker hours, and her pain level was recorded being ~8/10 upon arrival to the [facility] ED. Initial trop in [facility] ED was 47 @ 04:25, repeat trop @ 05:38 increased to 50. TNK and Brilinta initiated in [facility] ED. Labetalol also given in [facility] ED, as her SBP was in the 200s. SBP improved to the 150s following administration. Low-dose fentanyl was also given for pain. Patient did become bradycardic in the 30s, was ultimately given 1mg of atropine and started on a dopamine infusion. Patient ultimately transferred here to [facility] via [facility]. Patient underwent successful cardiac catheterization of mid RCA w/ single drug- eluding stent placement, performed by Dr. Thomas. He mentioned further evaluation/management of the mid circumflex artery, as 80% occlusion was noted during the cardiac catheterization procedure. Continue to f/u on Dr. Thomas' recommendation/plan for addressing the mid circumflex artery occlusion. Of note, 30-40% distal left main artery and 60% mid LAD artery occlusions noted during procedure as well. She is now off the dopamine drip s/p cardiac catheterization. HR currently holding steady in the 80s. Acute ST elevation myocardial infarction (STEMI) of inferior wall: Plan per cardiology: Post rescue PCI to mid RCA with BAILEY following thrombolytics Severe nonculprit [id number]% mid LCx, 60% mid LAD, 30% distal LM 2. ICMEF 35-40%, inferior/inferolateral wall motion abnormality 3. PADocclusive carotid artery disease, prior AAA post EVAR 4. Tobacco abuse Stable from a cardiac standpoint. No recurrent chest pain Hemodynamically and electrically stable No significant congestion on exam Ecchymosis but no evidence of significant right radial artery access site complications. Continue DAPT with aspirin, ticagrelor Lisinopril 10 mg daily Metoprolol succinate 50 mg twice daily Continue current statin spironolactone 12.5 mg daily No need for LifeVest In the setting of mental status issues, acute LV dysfunction and coronary anatomy will defer possible staged PCI of circumflex to outpatient setting. 01/06 stable overall no cardiac symptoms continue meds monitor (4) Hyperlipidemia: Plan: -Patient was not taking any cholesterol medications at home. -Was started on high-dose statin therapy per cardiac protocol. (5) History of dementia: Plan: -on memantine and donpezil -Monitor for any signs of delirium during admission (6) GERD (gastroesophageal reflux disease): Plan: -Continue pantoprazole Pt's , Jeremy, Cell Pt's is interested for Danita to be placed to rehab at discharge from the hospital. CM aware and involved in DC plan. Plan to DC to [facility] on . Code Status: Full Code PCP: Sreedhar Jackson MD Dispo: transition to acute rehab tomorrow Admission and Anticipated Discharge Date Admission Date: January 02, 2024 Subjective ff up for STEMI, etc seen resting in chair, comfortable in good spirits states she feels fine overall no chest pain, dyspnea, palpitations, dizziness ambulating with no problems no other symptoms Review of Systems Review of Systems: all noted and negative except for above Physical Exam Physical Exam: General- oriented x 3, not in distress, speaks in sentences with no effort or accessory muscle use Eyes- anicteric Neck- no JVD Lungs- clear breath sounds bilaterally, no rales/wheezes Heart- normal rate, regular rhythm; no murmurs Abdomen- normal bowel sounds, nondistended, soft, nontender Extremities- no pretibial edema, no calf tenderness R upper arm: (+) hematoma, no edema Neuro- alert, oriented x 3; no gross focal neurologic deficits Skin- warm & dry Results & Data Results & Data Vital Signs (Past 12 Hours) Vital Signs Temp Pulse Resp BP Pulse Ox O2 Del Method 01/07/24 14:44 36.4 C L 64 18 129/70 92 Room Air 01/07/24 11:03 36.5 C 72 18 120/62 91 Room Air 01/07/24 07:36 36.8 C 63 17 130/82 91 Room Air 01/07/24 06:51 36.6 C 69 18 138/81 92 Room Air all noted and reviewed including below (3) Coronary artery disease Coronary Disease-Associated Artery/Lesion type: unspecified vessel or lesion type [place] vs. transplanted heart: [place] heart Associated angina: unspecified whether angina present Qualified Code(s): I25.10 - Atherosclerotic heart disease of [place] coronary artery without angina pectoris (4) Hyperlipidemia Hyperlipidemia type: unspecified Qualified Code(s): E78.5 - Hyperlipidemia, unspecified (6) GERD (gastroesophageal reflux disease) Esophagitis presence: without esophagitis Qualified Code(s): K21.9 - Gastro- esophageal reflux disease without esophagitis
[2024-01-08 07:34] LABS: Hematocrit (blood only) 31.7 % (37.0-47.0); Hemoglobin 10.5 g/dl (12.0-16.0); Mean Corpuscular Hemoglobin 31.6 pg (25.0-34.0); Mean Corpuscular Hgb Conc 33.1 g/dL (32.0-36.0); Mean Corpuscular Volume 95.5 fL (80.0-100.0); Mean Platelet Volume 11.8 fL (9.4-12.4); Platelet Count 177 K/uL (130-400); RDW Coefficient of Variation 13.3 % (11.5-14.5); RDW Standard Deviation 46.5 fL (36.4-46.3); Red Blood Count 3.32 M/uL (4.20-5.40); White Blood Count 6.97 K/ul (4.8-10.8)
[2024-01-08 07:57] LABS: BUN Creatinine Ratio 15.2 (10-20); Calcium 9.4 mg/dl (8.6-10.3); Creatinine Clr Calc Pharmacy 27.4 ml/min; Est GFR (African American) 42.9 ml/min; Magnesium 1.9 mg/dl (1.7-2.4); Phosphorus 3.7 mg/dl (2.5-4.9); Potassium 4.2 mmol/L (3.5-5.1)
[2024-01-08] MEDS: SODIUM CHLORIDE 0.9% 1,000 ML IV SCH (09:34)
--- NOTE | 2024-01-08 10:48 | Hospitalist Progress Note ---
Date of Service January 08, 2024 Assessment & Plan (1) Acute ST elevation myocardial infarction (STEMI) of inferior wall: (2) S/P cardiac catheterization: (3) Coronary artery disease: Plan: per previous hospitalist notes with addendum: Danita Bull is a 78y/o F with PMHx of CAD, urinary incontinence, TIA [2019], dementia, hyperlipidemia, b/l carotid artery stenosis, GERD, ruptured AAA s/p endovascular repair [04/16/2022], osteoarthritis/RA and fibromyalgia who presented to [facility] following transfer from [facility] to undergo cardiac catheterization for tx of an acute inferior STEMI. 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 EKG performed by EMS revealed an inferior STEMI, and aspiring was provided en route to the hospital. She was reported to be at baseline yesterday. The chest pain has lingered since it began in the beauty sales consultant hours, and her pain level was recorded being ~8/10 upon arrival to the [facility] ED. Initial trop in [facility] ED was 47 @ 04:25, repeat trop @ 05:38 increased to 50. TNK and Brilinta initiated in [facility] ED. Labetalol also given in [facility] ED, as her SBP was in the 200s. SBP improved to the 150s following administration. Low-dose fentanyl was also given for pain. Patient did become bradycardic in the 30s, was ultimately given 1mg of atropine and started on a dopamine infusion. Patient ultimately transferred here to [facility] via [facility]. Patient underwent successful cardiac catheterization of mid RCA w/ single drug- eluding stent placement, performed by Dr. Thomas. He mentioned further evaluation/management of the mid circumflex artery, as 80% occlusion was noted during the cardiac catheterization procedure. Continue to f/u on Dr. Thomas' recommendation/plan for addressing the mid circumflex artery occlusion. Of note, 30-40% distal left main artery and 60% mid LAD artery occlusions noted during procedure as well. She is now off the dopamine drip s/p cardiac catheterization. HR currently holding steady in the 80s. Acute ST elevation myocardial infarction (STEMI) of inferior wall: Plan per cardiology: Post rescue PCI to mid RCA with BAILEY following thrombolytics Severe nonculprit [id number]% mid LCx, 60% mid LAD, 30% distal LM 2. ICMEF 35-40%, inferior/inferolateral wall motion abnormality 3. PADocclusive carotid artery disease, prior AAA post EVAR 4. Tobacco abuse Stable from a cardiac standpoint. No recurrent chest pain Hemodynamically and electrically stable No significant congestion on exam Ecchymosis but no evidence of significant right radial artery access site complications. Continue DAPT with aspirin, ticagrelor Lisinopril 10 mg daily Metoprolol succinate 50 mg twice daily Continue current statin spironolactone 12.5 mg daily No need for LifeVest In the setting of mental status issues, acute LV dysfunction and coronary anatomy will defer possible staged PCI of circumflex to outpatient setting. 01/07 stable overall no cardiac symptoms -- hold Lisinopril and Spironolactone as crea increased to 1.[address] Thomas repeat crea tomorrow, then monitor closely Continue DAPT with aspirin, ticagrelor Metoprolol succinate 50 mg twice daily Continue current statin No need for LifeVest follow up with [employer] Dr. Sonu Thomas in 1 week (4) Hyperlipidemia: Plan: -Patient was not taking any cholesterol medications at home. -Was started on high-dose statin therapy per cardiac protocol. (5) History of dementia: Plan: -on memantine and donpezil -Monitor for any signs of delirium during admission (6) GERD (gastroesophageal reflux disease): Plan: -Continue pantoprazole Pt's , Jeremy, Cell Pt's is interested for Danita to be placed to rehab at discharge from the hospital. CM aware and involved in DC plan. Plan to DC to [facility] on . Code Status: Full Code PCP: Sreedhar Jackson MD Dispo: transition to acute rehab Admission and Anticipated Discharge Date Admission Date: January 02, 2024 Subjective ff up for STEMI, etc seen resting in bed, comfortable states she feels fine overall no chest pain, dyspnea, palpitations, dizziness no fever/chills no arm pain no other symptoms states she is ready for discharge to Rehab today Review of Systems Review of Systems: all noted and negative except for above Physical Exam Physical Exam: General- oriented x 1, not in distress, speaks in sentences with no effort or accessory muscle use Eyes- anicteric Neck- no JVD Lungs- clear breath sounds bilaterally, no rales/wheezes Heart- normal rate, regular rhythm; no murmurs Abdomen- normal bowel sounds, nondistended, soft, nontender Extremities- no pretibial edema, no calf tenderness 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 transplanted heart: [place] heart Associated angina: unspecified whether angina present Qualified Code(s): I25.10 - Atherosclerotic heart disease of [place] coronary artery without angina pectoris (4) Hyperlipidemia Hyperlipidemia type: unspecified Qualified Code(s): E78.5 - Hyperlipidemia, unspecified (6) GERD (gastroesophageal reflux disease) Esophagitis presence: without esophagitis Qualified Code(s): K21.9 - Gastro- esophageal reflux disease without esophagitis
--- NOTE | 2024-01-08 10:59 | Discharge Summary ---
Discharge Summary Date of Service January 08, 2024 Notes For Next Care Provider Medication Changes From Visit Please refer to assessment and plan below. Admission HPI Per Admitting Provider Danita Bull is a 78y/o F with PMHx of CAD, urinary incontinence, TIA [2019], dementia, hyperlipidemia, b/l carotid artery stenosis, GERD, ruptured AAA s/p endovascular repair [04/16/2022], osteoarthritis/RA and fibromyalgia who presented to [facility] following transfer from [facility] to undergo cardiac catheterization for tx of an acute inferior STEMI. History mainly obtained from associated ED/PCP/specialist records. Patient unable to provide significant history. According to documentation from [facility], patient presented to their ED via EMS with c/c of chest pain starting sometime in the wool sampler hours today. EKG performed by EMS revealed an inferior STEMI, and aspiring was provided en route to the hospital. She was reported to be at baseline yesterday. The chest pain has lingered since it began in the wool sampler hours, and her pain level was recorded being ~8/[address] [facility] ED. Initial trop in [facility] ED was 47 @ 04:25, repeat trop @ 05:38 increased to 50. TNK and Brilinta initiated in [facility] ED. Labetalol also given in [facility] ED, as her SBP was in the 200s. SBP improved to the 150s following administration. Low-dose fentanyl was also given for pain. Patient did become bradycardic in the 30s, was ultimately given 1mg of atropine and started on a dopamine infusion. Patient seen at bedside in ICU s/p cardiac catheterization performed by Dr. Thomas. Patient states she is "exhausted." Experiencing no chest pain or SOB at this time. Not really oriented to her surroundings, did not correctly identify where she currently is. Patient states she is in "an outpatient surgery center somewhere in [place]." Patient was discussed with bedside nurse, Jethro, who was going to contact her to clarify her home medications and baseline mental status. Admission Exam Per Admitting Provider General Appearance: Appears very tired, but comfortable. Had to wake her up multiple times during our conversation, as she kept falling asleep. Head: Normocephalic, atraumatic. Eyes: Normal inspection, PERRL, conjunctivae normal, anicteric sclerae. ENT: External ear and nose normal, oropharynx normal. Neck: Normal visual inspection, trachea midline, no thyromegaly. Respiratory: Normal respiratory effort, lungs clear to auscultation on the anterior aspect, no wheeze, rales, rhonchi. No accessory muscle use. Cardiovascular: Regular rate, rhythm, no murmur, normal peripheral pulses, no peripheral edema. Vessels: No JVD. Chest: Normal inspection of chest. Abdomen/GI: Normal bowel sounds, soft, nontender, no hepatosplenomegaly Extremities/Musculoskeletal: No cyanosis or clubbing. Neurologic: PERRL, EOMI, accommodation nl, no face palsy, no dysarthria. Psychiatric: Not oriented to location. Was able to make eye contact on/off. Flatter affect, however notably sleepy. Skin: [address] s/p cardiac catheterization. No evidence of bleeding at either site. Principal Dx & Hospital Course #1 = Principal Diagnosis (1) Acute ST elevation myocardial infarction (STEMI) of inferior wall: (2) S/P cardiac catheterization: (3) Coronary artery disease: per previous hospitalist notes with addendum: Danita Bull is a 78y/o F with PMHx of CAD, urinary incontinence, TIA [2019], dementia, hyperlipidemia, b/l carotid artery stenosis, GERD, ruptured AAA s/p endovascular repair [04/16/2022], osteoarthritis/RA and fibromyalgia who presented to [facility] following transfer from [facility] to undergo cardiac catheterization for tx of an acute inferior STEMI. According to documentation from [facility], patient presented to their ED via EMS with c/c of chest pain starting sometime in the wool sampler hours today. EKG performed by EMS revealed an inferior STEMI, and aspiring was provided en route to the hospital. She was reported to be at baseline yesterday. The chest pain has lingered since it began in the wool sampler hours, and her pain level was recorded being ~8/[address] the [facility] ED. Initial trop in [facility] ED was 47 @ 04:25, repeat trop @ 05:38 increased to 50. TNK and Brilinta initiated in [facility] ED. Labetalol also given in [facility] ED, as her SBP was in the 200s. SBP improved to the 150s following administration. Low-dose fentanyl was also given for pain. Patient did become bradycardic in the 30s, was ultimately given 1mg of atropine and started on a dopamine infusion. Patient ultimately transferred here to [facility] via [facility] ambulance. Patient underwent successful cardiac catheterization of mid RCA w/ single drug- eluding stent placement, performed by Dr. Thomas. He mentioned further evaluation/management of the mid circumflex artery, as 80% occlusion was noted during the cardiac catheterization procedure. Continue to f/u on Dr. Thomas' recommendation/plan for addressing the mid circumflex artery occlusion. Of note, 30-40% distal left main artery and 60% mid LAD artery occlusions noted during procedure as well. She is now off the dopamine drip s/p cardiac catheterization. HR currently holding steady in the 80s. Acute ST elevation myocardial infarction (STEMI) of inferior wall: Plan per cardiology: Post rescue PCI to mid RCA with BAILEY following thrombolytics Severe nonculprit [id number]% mid LCx, 60% mid LAD, 30% distal LM 2. ICMEF 35-40%, inferior/inferolateral wall motion abnormality 3. PADocclusive carotid artery disease, prior AAA post EVAR 4. Tobacco abuse Stable from a cardiac standpoint. No recurrent chest pain Hemodynamically and electrically stable No significant congestion on exam Ecchymosis but no evidence of significant right radial artery access site complications. Continue DAPT with aspirin, ticagrelor Lisinopril 10 mg daily Metoprolol succinate 50 mg twice daily Continue current statin spironolactone 12.5 mg daily No need for LifeVest In the setting of mental status issues, acute LV dysfunction and coronary a natomy will defer possible staged PCI of circumflex to outpatient setting. 01/07 stable overall no cardiac symptoms -- hold Lisinopril and Spironolactone as crea increased to 1.[address] Thomas repeat crea tomorrow, then monitor closely Continue DAPT with aspirin, ticagrelor Metoprolol succinate 50 mg twice daily Continue current statin No need for LifeVest follow up with Returns Clerk Dr. Sonu Thomas in 1 week (4) Hyperlipidemia: -Patient was not taking any cholesterol medications at home. -Was started on high-dose statin therapy per cardiac protocol. (5) History of dementia: -on memantine and donpezil -Monitor for any signs of delirium during admission (6) GERD (gastroesophageal reflux disease): -Continue pantoprazole Pt's , Jeremy, Cell Pt's is interested for Danita to be placed to rehab at discharge from the hospital. CM aware and involved in DC plan. Plan to DC to [facility] on . Code Status: Full Code PCP: Sreedhar Jackson MD Dispo: transition to acute rehab Discharge Exam General- oriented x 1, not in distress, speaks in sentences with no effort or accessory muscle use Eyes- anicteric Neck- no JVD Lungs- clear breath sounds bilaterally, no rales/wheezes Heart- normal rate, regular rhythm; no murmurs Abdomen- normal bowel sounds, nondistended, soft, nontender Extremities- no pretibial edema, no calf tenderness R upper arm: hematoma- ethical hacker Neuro- alert, oriented x 1; no gross focal neurologic deficits Skin- warm & dry Updated Medication List Medication Instructions Recorded Confirmed Type aspirin 81 mg capsule 81 mg PO DAILY 01/02/24 01/02/24 History donepezil 10 mg tablet 10 mg PO DAILY 01/02/24 01/02/24 History memantine 10 mg tablet 10 mg PO DAILY 01/02/24 01/02/24 History metoprolol succinate 100 mg 100 mg PO DAILY 01/02/24 01/02/24 History tablet,extended release 24 hr pantoprazole 40 mg tablet,delayed 40 mg PO DAILY 01/02/24 01/02/24 History release (Protonix) trospium 60 mg capsule,extended 60 mg PO QPM 01/02/24 01/02/24 History release 24 hr L.acidop,casei,lactis,rham-B.lact,doc 1 cap PO DAILY 10 days #10 caps 01/08/24 Rx 625 mg (10 billion cell) capsule (Advanced Probiotic) atorvastatin 40 mg tablet 40 mg PO QAM 30 days #30 tabs 01/08/24 Rx folic acid 1 mg tablet 1 mg PO QAM 7 days #7 tabs 01/08/24 Rx magnesium oxide 400 mg (241.3 mg 400 mg PO BID 7 days #14 tabs 01/08/24 Rx magnesium) tablet metoprolol succinate 50 mg 50 mg PO BID 30 days #60 tabs 01/08/24 Rx tablet,extended release 24 hr thiamine HCl (vitamin B1) 100 mg 100 mg PO QAM 7 days #7 tabs 01/08/24 Rx tablet ticagrelor 90 mg tablet (Brilinta) 90 mg PO BID 30 days #60 tabs 01/08/24 Rx Hospital Stay Data Consultations 01/02/24 09:52 Consult Shingle Packer Routine 01/02/24 11:39 Consult Cardiology Routine Procedures Performed Operation Date: 01/02/24 07:30 Actual Procedures p Cineradiography w/Routine Exam - Sonu Thomas MD s Cath, Left with Cors and Vent - Sonu Thomas MD s Ultrasound Vascular Access - Sonu Thomas MD s Aspiration/PCI w/BAILEY for Stemi - Sonu Thomas MD Diagnostic Imagining Performed Laboratory Results WBC 6.97 K/ul (4.8-10.8) 01/08/24 06:52 RBC 3.32 M/uL (4.20-5.40) L 01/08/24 06:52 Hgb 10.5 g/dl (12.0-16.0) L 01/08/24 06:52 Hct 31.7 % (37.0-47.0) L 01/08/24 06:52 MCV 95.5 fL (80.0-100.0) 01/08/24 06:52 MCH 31.6 pg (25.0-34.0) 01/08/24 06:52 MCHC 33.1 g/dL (32.0-36.0) 01/08/24 06:52 RDW Std Deviation 46.5 fL (36.4-46.3) H 01/08/24 06:52 RDW Coeff of Freddy 13.3 % (11.5-14.5) 01/08/24 06:52 Plt Count 177 K/uL (130-400) 01/08/24 06:52 MPV 11.8 fL (9.4-12.4) 01/08/24 06:52 Immature Gran % (Auto) 0.5 % 01/04/24 05:35 Neut % (Auto) 77.8 % 01/04/24 05:35 Lymph % (Auto) 10.3 % 01/04/24 05:35 [place] % (Auto) 10.5 % 01/04/24 05:35 Eos % (Auto) 0.6 % 01/04/24 05:35 Baso % (Auto) 0.3 % 01/04/24 05:35 Neut # (Auto) 6.84 K/uL (1.40-6.50) H 01/04/24 05:35 Lymph # (Auto) 0.90 K/uL (1.20-3.40) L 01/04/24 05:35 [place] # (Auto) 0.92 K/uL (0.11-0.59) H 01/04/24 05:35 Eos # (Auto) 0.05 K/uL (0.00-0.50) 01/04/24 05:35 Baso # (Auto) 0.03 K/uL (0.00-0.20) 01/04/24 05:35 Immature Gran # (Auto) 0.04 K/uL (0.01-0.20) 01/04/24 05:35 Activ Coag Time Kaolin 293 SECONDS (94-140) H 01/02/24 09:14 Sodium 137 mmol/L (136-145) 01/08/24 06:52 Potassium 4.2 mmol/L (3.5-5.1) 01/08/24 06:52 Chloride 105 mmol/L (98-107) 01/08/24 06:52 Carbon Dioxide 25 mmol/L (21-32) 01/08/24 06:52 Anion Gap 7 (3-11) 01/08/24 06:52 BUN 21 mg/dl (6-23) 01/08/24 06:52 Creatinine 1.38 mg/dl (0.6-1.2) H D 01/08/24 06:52 Est Cr Clr Drug Dosing 27.4 ml/min 01/08/24 06:52 Est GFR ( Amer) 42.9 ml/min 01/08/24 06:52 Est GFR (Non-Af Amer) 37.0 ml/min 01/08/24 06:52 BUN/Creatinine Ratio 15.2 (10-20) 01/08/24 06:52 Glucose 113 mg/dl (70-99(Fasting)) H 01/08/24 06:52 POC Glucose 291 mg/dl (70-99) H 01/04/24 11:23 Estimat Average Glucose 134 mg/dl 01/03/24 04:32 Hemoglobin A1c 6.3 % (4.5-5.6) H 01/03/24 04:32 Calcium 9.4 mg/dl (8.6-10.3) 01/08/24 06:52 Phosphorus 3.7 mg/dl (2.5-4.9) 01/08/24 06:52 Magnesium 1.9 mg/dl (1.7-2.4) 01/08/24 06:52 Troponin I High Sens 39157.0 pg/ml (0-14) H* D 01/03/24 10:41 Triglycerides 246 mg/dl (0-150) H 01/03/24 04:32 Cholesterol 190 mg/dl (0-200) 01/03/24 04:32 LDL Cholesterol, Calc 101 mg/dl 01/03/24 04:32 VLDL Cholesterol, Calc 49 mg/dl (0-30) H 01/03/24 04:32 HDL Cholesterol 40 mg/dl 01/03/24 04:32 Cholesterol/HDL Ratio 4.8 (0-5) 01/03/24 04:32 Nasal Screen MRSA (PCR) Negative (Negative) 01/02/24 10:30 01/02/24 06:36 CL Cath Imgs for PACS use only Routine Pending Results Patient Have Any Pending Studies at Discharge: Yes Discharge Instructions Given to Patient (Per Discharging Provider) PLEASE REFER TO ACCOMPANYING HOSPITAL DISCHARGE SUMMARY FOR FULL DETAILS. Total Time Total Time Spent Total Time Spent (In Minutes): 40 minutes
== END 2024-01-08 16:07 | DRG 322 ==
LOC: CC 08:22 → 1E 09:28 → SUATTDRO 09:28 → 2E 01-04 01:39
DX: Z79.82 Long term (current) use of aspirin; M06.9 Rheumatoid arthritis, unspecified; M79.81 Nontraumatic hematoma of soft tissue; F17.210 Nicotine dependence, cigarettes, uncomplicated; Z79.899 Other long term (current) drug therapy; I25.5 Ischemic cardiomyopathy; I73.9 Peripheral vascular disease, unspecified; Z86.73 Personal history of transient ischemic attack (TIA), and cerebral infarction without residual deficits; E78.5 Hyperlipidemia, unspecified; D64.9 Anemia, unspecified; I25.10 Atherosclerotic heart disease of native coronary artery without angina pectoris; I21.19 ST elevation (STEMI) myocardial infarction involving other coronary artery of inferior wall; I10 Essential (primary) hypertension; Z88.8 Allergy status to other drugs, medicaments and biological substances; K21.9 Gastro-esophageal reflux disease without esophagitis; Z88.2 Allergy status to sulfonamides; N39.41 Urge incontinence; F03.90 Unspecified dementia, unspecified severity, without behavioral disturbance, psychotic disturbance, mood disturbance, and anxiety; M79.7 Fibromyalgia; Z88.0 Allergy status to penicillin; I95.9 Hypotension, unspecified; M19.90 Unspecified osteoarthritis, unspecified site; I71.40 Abdominal aortic aneurysm, without rupture, unspecified; F10.231 Alcohol dependence with withdrawal delirium; Z91.048 Other nonmedicinal substance allergy status; Z95.2 Presence of prosthetic heart valve